=== PATIENT | female | born 1940 | race Caucasian/White ===

== ENCOUNTER 2020-12-05 10:09 | Outpatient (REF) | payer MEDICARE, SELFPAY ==
[2020-12-05 13:22] LABS: MANUAL DIFF FLAG NO
[2020-12-05 13:27] LABS: Basophils Absolute Auto 0.1 X10*3/uL (0.0-0.2); Basophils Percent Auto 0.7 % (0-2); Eosinophils Absolute Auto 0.1 X10*3/uL (0.0-0.4); Eosinophils Percent Auto 1.9 % (0-4); Hematocrit 39.6 % (37-47); Imm Gran Abs Auto 0.01 X10*3/uL (0.00-0.03); Imm Gran Pct Auto 0.1 % (0.0-0.4); Lymphocytes Absolute Auto 2.8 X10*3/uL (1.2-4.9); Mean Corpuscular HGB Conc 32.8 g/dl (31.0-35.0); Mean Corpuscular Hemoglobin 30.6 pg (27.0-33.0); Mean Corpuscular Volume 93.2 fL (80-98); Mean Platelet Volume 10.4 fL (9.4-12.3); Monocytes Absolute Auto 0.5 X10*3/uL (0.1-1.2); Monocytes Percent Auto 6.9 % (2-11); Neutrophils Absolute Auto 3.8 X10*3/uL (2.0-8.3); Neutrophils Percent Auto 52.4 % (45-73); Platelet Count 307 X10*3/uL (160-400); Red Blood Count 4.25 X10*6/uL (4.20-5.50); Red Cell Distribution Width 13.1 % (11.0-16.0); White Blood Count 7.3 X10*3/uL (4.8-10.8)
[2020-12-05 14:03] LABS: Alanine Aminotransferase 19 U/L (0-31); Albumin Level 4.3 g/dL (3.5-5.0); Alkaline Phosphatase 48 U/L (39-117); Anion Gap 15 (12-20); Aspartate Amino Transferase 23 U/L (5-31); Bilirubin Total 0.7 mg/dL (0.0-1.0); Blood Urea Nitrogen 16 mg/dL (9-16); Calcium 9.5 mg/dL (8.4-10.2); Carbon Dioxide 27 mmol/L (22-29); Chloride 103 mmol/L (96-108); Cholesterol 203 mg/dL; Estimated Glomerular Filt Rate 58; Glucose Fasting 80 mg/dL (60-99); HDL Cholesterol 46 mg/dL; Iron 101 mcg/dL (30-160); LDL Cholesterol Calculated 135 mg/dl; Percent Iron Saturation 31 % (15-50); Potassium 4.6 mmol/L (3.3-5.1); Sodium 140 mmol/L (135-145); Total Iron Binding Capacity 331 mcg/dL (228-428); Total Protein 7.1 g/dL (6.5-8.0); Triglycerides 114 mg/dL; Unsaturated Iron Binding 230 ug/dL
[2020-12-05 14:19] LABS: Ferritin 133 ng/mL (10-250); Thyroid Stimulating Hormone 3.02 uIU/mL (0.32-4.0); Vitamin D 25-OH Total 90.3 ng/mL (>30)
[2020-12-05 14:40] LABS: Vitamin B12 1646 pg/mL (200-900)
== END 2020-12-05 10:10 | disposition home or self-care (01) ==
LOC: HO.MANLDS 10:09
PROVIDERS: PCP Internal Medicine; Visit Provider Internal Medicine
DX: E78.00 Pure hypercholesterolemia, unspecified (principal); R53.83 Other fatigue
CPT/HCPCS: 36415; 80053; 80061; 82306; 82607; 82728; 83540; 84443; 85025

== ENCOUNTER 2021-06-06 08:06 | Outpatient (REF) | payer MEDICARE, BC, SELFPAY ==
--- NOTE | ~2021-06-06 | MM_ITS ---
EXAMINATION: BONE DENSITOMETRY CLINICAL INDICATION: Osteopenia. COMPARISON: Previous BD dated 04/07/2019 and baseline BD dated 05/08/2008. TECHNIQUE: Using a [employer] DXA System (software version: 13.1) manufactured by [employer], dual-energy x-ray absorptiometry was performed of the lumbar spine and left hip. The images are of good technical quality. Summary results are attached. FINDINGS: AP SPINE L1-L2 (excluding L3 and L4): The data of L1-L4 has been changed to exclude the L3 and L4 vertebral bodies, because degenerative changes at these levels may cause overestimation of lumbar spine density. Current: BMD 1.030 g/cm2, Z-score 0.1, T-score -1.1, osteopenia, 5.1% increase from previous, 4.9% increase from baseline (<5% change is not significant). Prior: BMD 0.980 g/cm2. Baseline: BMD 0.982 g/cm2. LEFT FEMUR, NECK: Current: BMD 0.866 g/cm2, Z-score 0.4, T-score -1.2, osteopenia. Prior: BMD 0.820 g/cm2. Baseline: BMD 0.846 g/cm2. LEFT FEMUR, TOTAL: Current: BMD 0.892 g/cm2, Z-score 0.6, T-score -0.9, normal, 1.4% increase from previous, 1.2% increase from baseline (<5% change is not significant). Prior: BMD 0.880 g/cm2. Baseline: BMD 0.881 g/cm2. IDENTIFIED RISK FACTORS: Menopause, bilateral oophorectomy, family history (parent hip fracture). HISTORY OF FRACTURE: None listed. MEDICATIONS: Multivitamin. MM/XR DEXA axial skeleton IMPRESSION: 1. DIAGNOSIS: Osteopenia based on the lowest T-score value of -1.2 in the femoral neck applying World Health Organization criteria. 2. 10-YEAR FRACTURE RISK PREDICTION, FRAX: Major osteoporotic fracture (clinical spine, forearm, hip or shoulder) 18.7%. Hip fracture 9.3%. 3. Treatment Recommendations: NOF guidelines recommend consideration for treatment in postmenopausal women and men age 50 and older presenting with the following: -A hip or vertebral (clinical or morphometric) fracture. -T-score less than or equal to -2.5 at the femoral neck or spine after appropriate evaluation to exclude secondary causes. -Low bone mass at the hip or spine and a 10-year fracture probability by FRAX of greater than or equal to 3% for hip fracture or greater than or equal to 20% for major osteoporotic fracture based on the [place] adapted WHO algorithm. 4. Other Recommendations: All treatment decisions require clinical judgment and consideration of individual patient factors, including patient preferences, comorbidities, previous drug use, risk factors not captured in the FRAX model (e.g. frailty, falls, vitamin D deficiency, increased bone turnover, interval significant decline in bone density) and possible under or overestimation of fracture risk by FRAX. Additional medical evaluation for secondary cause of low bone mineral density may be appropriate. FUTURE SCAN RECOMMENDATION: People with diagnosed cases of osteoporosis or at high risk for fracture should have regular bone mineral density tests. For patients eligible for Medicare, routine testing is allowed once every 2 years. The testing frequency can be increased to one year for patients who have rapidly progressing disease, those who are receiving or discontinuing medical therapy to restore bone mass, or have additional risk factors.
== END 2021-06-06 08:07 | disposition home or self-care (01) ==
LOC: HO.MAMMO 08:06
PROVIDERS: Visit Provider Internal Medicine
DX: Z13.820 Encounter for screening for osteoporosis (principal); M85.80 Other specified disorders of bone density and structure, unspecified site; Z78.0 Asymptomatic menopausal state
CPT/HCPCS: 77080

== ENCOUNTER 2021-12-24 07:31 | Outpatient (REF) | payer MEDICARE, BC, SELFPAY ==
[2021-12-24 11:13] LABS: Alanine Aminotransferase 17 U/L (0-31); Alkaline Phosphatase 48 U/L (39-117); Anion Gap 11 (12-20); Aspartate Amino Transferase 22 U/L (5-31); Bilirubin Total 0.4 mg/dL (0.0-1.0); Blood Urea Nitrogen 21 mg/dL (9-16); Calcium 9.5 mg/dL (8.4-10.2); Carbon Dioxide 27 mmol/L (22-29); Chloride 108 mmol/L (96-108); Estimated Glomerular Filt Rate 60; Glucose Random 126 mg/dL (60-115); Potassium 4.8 mmol/L (3.3-5.1); Sodium 141 mmol/L (135-145); Total Protein 6.8 g/dL (6.5-8.0)
== END 2021-12-24 07:32 | disposition home or self-care (01) ==
LOC: HO.MANLDS 07:31
PROVIDERS: PCP Internal Medicine; Visit Provider Internal Medicine
DX: E78.5 Hyperlipidemia, unspecified (principal)
CPT/HCPCS: 36415; 80053

== ENCOUNTER 2022-05-20 09:52 | Outpatient (REF) | payer MEDICARE, BC, SELFPAY ==
[2022-05-20 12:16] LABS: Alanine Aminotransferase 12 U/L (0-31); Albumin Level 4.2 g/dL (3.5-5.0); Alkaline Phosphatase 52 U/L (39-117); Anion Gap 15 (12-20); Aspartate Amino Transferase 17 U/L (5-31); Bilirubin Total 0.5 mg/dL (0.0-1.0); Blood Urea Nitrogen 20 mg/dL (9-16); Calcium 9.7 mg/dL (8.4-10.2); Carbon Dioxide 28 mmol/L (22-29); Chloride 103 mmol/L (96-108); Estimated Glomerular Filt Rate 57; Glucose Random 78 mg/dL (60-115); Potassium 5.3 mmol/L (3.3-5.1); Sodium 141 mmol/L (135-145); Total Protein 7.1 g/dL (6.5-8.0)
== END 2022-05-20 09:53 | disposition home or self-care (01) ==
LOC: HO.MANLDS 09:52
PROVIDERS: Visit Provider Internal Medicine
DX: E78.5 Hyperlipidemia, unspecified (principal)
CPT/HCPCS: 36415; 80053

== ENCOUNTER 2022-12-02 07:43 | Outpatient (REF) | payer MEDICARE, BC, SELFPAY ==
[2022-12-02 12:35] LABS: Alanine Aminotransferase 16 U/L (0-31); Albumin Level 4.1 g/dL (3.5-5.0); Alkaline Phosphatase 52 U/L (39-117); Anion Gap 13 (12-20); Aspartate Amino Transferase 20 U/L (5-31); Bilirubin Total 0.5 mg/dL (0.0-1.0); Blood Urea Nitrogen 18 mg/dL (9-16); Calcium 9.4 mg/dL (8.4-10.2); Carbon Dioxide 30 mmol/L (22-29); Chloride 103 mmol/L (96-108); Cholesterol 196 mg/dL; Estimated Glomerular Filt Rate 56; Glucose Random 95 mg/dL (60-115); HDL Cholesterol 47 mg/dL; LDL Cholesterol Calculated 127 mg/dl; Potassium 4.9 mmol/L (3.3-5.1); Sodium 141 mmol/L (135-145); Total Protein 6.9 g/dL (6.5-8.0); Triglycerides 111 mg/dL
== END 2022-12-02 07:44 | disposition home or self-care (01) ==
LOC: HO.MANLDS 07:43
PROVIDERS: Visit Provider Internal Medicine
DX: E78.5 Hyperlipidemia, unspecified (principal); E78.00 Pure hypercholesterolemia, unspecified
CPT/HCPCS: 36415; 80053; 80061

== ENCOUNTER 2023-11-30 07:51 | Outpatient (REF) | payer MEDICARE, BC, SELFPAY ==
[2023-11-30 13:37] LABS: Basophils Absolute Auto 0.1 X10*3/uL (0.0-0.2); Basophils Percent Auto 0.7 % (0-2); Eosinophils Absolute Auto 0.2 X10*3/uL (0.0-0.4); Eosinophils Percent Auto 2.2 % (0-4); Hematocrit 38.7 % (37.0-47.0); Hemoglobin 12.7 g/dl (12.0-16.0); Imm Gran Abs Auto 0.02 X10*3/uL (0.00-0.03); Imm Gran Pct Auto 0.3 % (0.0-0.4); Lymphocytes Absolute Auto 2.3 X10*3/uL (1.2-4.9); Mean Corpuscular HGB Conc 32.8 g/dl (31.0-35.0); Mean Corpuscular Hemoglobin 29.6 pg (27.0-33.0); Mean Corpuscular Volume 90.2 fL (80.0-98.0); Mean Platelet Volume 11.2 fL (9.4-12.3); Monocytes Absolute Auto 0.4 X10*3/uL (0.1-1.2); Neutrophils Absolute Auto 4.2 x10*3/uL (2.0-8.3); Neutrophils Percent Auto 58.8 % (45-73); Red Blood Count 4.29 X10*6/uL (4.20-5.50); Red Cell Distribution Width 13.6 % (11.0-16.0)
[2023-11-30 13:38] LABS: Platelet Count 227 X10*3/uL (160-400); White Blood Count 7.1 X10*3/uL (4.8-10.8)
[2023-11-30 13:59] LABS: Alanine Aminotransferase 18 U/L (0-31); Albumin Level 4.1 g/dL (3.5-5.0); Alkaline Phosphatase 52 U/L (39-117); Anion Gap 14 (12-20); Aspartate Amino Transferase 26 U/L (5-31); Bilirubin Total 0.4 mg/dL (0.0-1.0); Blood Urea Nitrogen 14 mg/dL (9-16); Carbon Dioxide 26 mmol/L (22-29); Chloride 106 mmol/L (96-108); Cholesterol 187 mg/dL (<200); Estimated Glomerular Filt Rate 52; Glucose Random 94 mg/dL (60-115); HDL Cholesterol 45 mg/dL (>40); LDL Cholesterol Calculated 123 mg/dL (<100); Potassium 5.3 mmol/L (3.3-5.1); Sodium 141 mmol/L (135-145); Total Protein 7.6 g/dL (6.5-8.0); Triglycerides 99 mg/dL (<150)
[2023-11-30 14:49] LABS: Reflex LDLD? No
== END 2023-11-30 07:52 | disposition home or self-care (01) ==
LOC: HO.MANLDS 07:51
PROVIDERS: Visit Provider Internal Medicine
DX: E78.00 Pure hypercholesterolemia, unspecified (principal)
CPT/HCPCS: 36415; 80053; 80061; 85025

== ENCOUNTER 2024-01-14 08:35 | Outpatient (REF) | payer MEDICARE, BC, SELFPAY ==
--- NOTE | ~2024-01-14 | MR_ITS ---
EXAMINATION: MR KNEE WITHOUT CONTRAST, RIGHT CLINICAL INFORMATION: Right knee pain. Multiple falls. Evaluate for a meniscal tear. COMPARISON: None available. TECHNIQUE: MRI of the knee without contrast was performed using routine sequences on a high-field scanner. FINDINGS: MENISCI: Medial Meniscus: Peripheral tibial articular surface fraying of the posterior horn (sagittal image /25). Lateral Meniscus: Mild focal femoral articular surface fraying of the meniscal body with minimal inner margin fraying of the posterior root. LIGAMENTS: Cruciate: Intact. Collateral: Intact. EXTENSOR MECHANISM: Intact quadriceps and patellar tendons. Normal patellofemoral alignment. ARTICULAR CARTILAGE/BONE: Patellofemoral Compartment: Patellar median ridge and medial patellar facet articular cartilage thinning with areas of full-thickness loss and subchondral cystic change. Medial Compartment: Mild articular cartilage signal heterogeneity with tiny marginal osteophytes. Medial tibial plateau full-thickness fissuring with underlying subchondral cystic change. Lateral Compartment: Mild articular cartilage signal heterogeneity with small marginal osteophytes. Subchondral cystic change at the lateral aspect of the weightbearing lateral femoral condyle. Focal marrow edema at the anteromedial aspect of the tibial plateau consistent with an osseous contusion. No associated fracture line. Overlying soft tissue edema/contusion. No hematoma. JOINT FLUID AND BURSAE: Small joint effusion and trace Washington's cyst. MR/MR knee RT wo con IMPRESSION: 1. Peripheral tibial articular surface fraying of the medial meniscus posterior horn. 2. Mild focal femoral articular surface fraying of the lateral meniscal body with minimal inner margin fraying of the posterior root. 3. Osseous contusion at the anteromedial aspect of the tibial plateau with overlying soft tissue contusion. No associated fracture line. 4. Mild tricompartmental osteoarthritis. Small joint effusion and trace Washington's cyst.
== END 2024-01-14 08:36 | disposition home or self-care (01) ==
LOC: HO.MRI 08:35
PROVIDERS: PCP Internal Medicine; Visit Provider Internal Medicine
DX: S83.206D Unspecified tear of unspecified meniscus, current injury, right knee, subsequent encounter (principal)
CPT/HCPCS: 73721

== ENCOUNTER → 2024-04-01 13:26 | Outpatient (AMB) | payer MEDICARE, BC, SELFPAY ==
--- NOTE | 2024-04-01 13:28 | MHC.OFFWIV ---
Intake Vital Signs 04/01/24 13:32 04/01/24 14:07 Height 5 ft 5.5 in Weight 184 lb 6 oz BMI 30.2 BP 122/72 Blood Pressure Location Rt brachial Position Sitting Respiration 14 Pulse 102 H 88 Pulse Source Pulse Oximeter Auscultation Pulse Oximetry (%) 97 Oxygen Delivery Method Room Air Intake Visit Reasons: tick bite Intake Note: patient has a tick bite on her back. Patient Tobacco Use Status: Never used Tobacco Allergies erythromycin base [From ERYTHROCIN] Allergy (Unknown, Verified 04/01/24 13:46) HIVES Medication List - Last Reconciled 04/01/24 by LORNE Singleton- No Known Home Meds Do you need a note to return to daycare/school/sports/work: No HPI HPI Comments History of Present Illness Details Pleasant 83-year-old female here today with chief complaints of a tick bite on her back. Reports that her noticed the tick yesterday and was able to extract it. She is unsure when the tick bite occurred. She is worried as she has a history of ehrlichiosis about 6 years ago. At the present time she denies any constitutional symptoms and feels quite well. Exam Awake alert oriented, no acute distress Speaking in full sentences 1-2 mm round area that is depressed in the center with scabbing noted at the thoracic hump, without erythema, drainage, warmth or tenderness Plan: Doxycycline 200mg x 1 Given hx of ehrlichiosis, check CBC and LFTs in 1 week. Educated on reasons to follow up. This note is constructed using voice recognition software. While every effort has been made to ensure accuracy in mission worker, still errors may have been included Sometimes, these errors may affect the content or meaning of the given sentence . [facility] Social History Patient Tobacco Use Status: Never used Tobacco Physical Exam Vital Signs: Last Vital Signs Pulse 102 H 04/01/24 13:32 Resp 14 04/01/24 13:32 BP 122/72 04/01/24 13:32 Pulse Ox 97 04/01/24 13:32 Oxygen Delivery Method Room Air 04/01/24 13:32 BMI result Body Mass Index 30.2 Assessment & Plan Assessment & Plan (1) History of ehrlichiosis: Code(s): Z86.19 - Personal history of other infectious and parasitic diseases Plan: . (2) Tick bite: Code(s): W57.XXXA - Bitten or stung by nonvenomous insect and other nonvenomous arthropods, initial encounter Qualifiers: Encounter type: initial encounter Site of tick bite: other part of neck Qualified Code(s): S10.86XA - Insect bite of other specified part of neck, initial encounter; W57.XXXA - Bitten or stung by nonvenomous insect and other nonvenomous arthropods, initial encounter Plan: . Orders: Orders Complete Blood Count Man Dif 1 Week W57.XXXA - Bitten or stung by nonvenomous insect and other nonvenomous arthropods, initial encounter, Z86.19 - Personal history of other infectious and parasitic diseases Liver Panel 1 Week W57.XXXA - Bitten or stung by nonvenomous insect and other nonvenomous arthropods, initial encounter, Z86.19 - Personal history of other infectious and parasitic diseases Medications: New doxycycline hyclate 200 mg (2 x 100 mg) PO DAILY 2 caps 0RF 1 day Coding Level of Care Code Est Pt Level 3 (37925) Diagnoses History of ehrlichiosis Z86.19 Tick bite of other part of neck, initial encounter S10.86XA; W57.XXXA Encounter type: initial encounter Site of tick bite: other part of neck
--- OUTSIDE RECORDS SUMMARY | 2024-04-01 13:28 | XMS_ITS | Continuity of Care Document ---
Author Organization [facility] [employer] [facility] Address [address] [place] [address]- Care Team Providers Care Cook Fruit Name Role Phone Lluvia MEDINA Dean Thomas Primary Care Physician [phone] [facility] [id number] Date(s): 12/25/20 - 01/24/21 [facility] [place] [facility] [employer] [facility] [address] [place], [place] [address] Attending Physician: Simon Martinez Admitting Physician: AdmSimon weller Referring Physician: Admtr ArWilma Allergies, Adverse Reactions, Alerts Substance Reaction Severity Status erythromycin Active Medications aspirin 81 mg oral tablet 1 tablet = 81 mg, By Mouth, Daily, # 30 tablet, 0 Refills, Maintenance, Tablet Start Date: 12/18/11 Status: Ordered Calcium Carbonate By Mouth, 0 Refills, Maintenance Start Date: 12/18/11 Status: Ordered Fluoxetine By Mouth, 20 mg daily, 0 Refills, Maintenance Start Date: 12/18/11 Status: Ordered Ocuvite 1 tablet, By Mouth, Daily, 0 Refills, Maintenance Start Date: 05/17/13 Status: Ordered Simvastatin By Mouth, Daily at bedtime, 0 Refills, Maintenance Start Date: 12/09/10 Status: Ordered Vitamin B Complex oral tablet, extended release 1 tablet, By Mouth, Daily, 0 Refills, Maintenance Start Date: 12/18/11 Status: Ordered Social History Social History Type Response Smoking Status Former smoker; Tob[employer] user in household: No entered on: 12/02/16 Sex
[2024-04-01 13:32] VITALS: BP 122/72; PULSE 102; RESP 14; O2SAT 97; BMI 30.2
[2024-04-01 14:07] VITALS: PULSE 88
== END ==
PROVIDERS: PCP Internal Medicine; Visit Provider Nurse Practitioner Family
DX: Z86.19 Personal history of other infectious and parasitic diseases (principal); S10.86XA Insect bite of other specified part of neck, initial encounter; W57.XXXA Bitten or stung by nonvenomous insect and other nonvenomous arthropods, initial encounter
CPT/HCPCS: 99213

== ENCOUNTER 2024-04-12 10:32 | Outpatient (REF) | payer MEDICARE, BC, SELFPAY ==
[2024-04-12 11:26] LABS: Baso%MD 0.7 %; Hematocrit 40.8 % (37.0-47.0); Hemoglobin 13.3 g/dl (12.0-16.0); IG%MD 0.4 %; Lymph%MD 34.3 %; Mean Corpuscular HGB Conc 32.6 g/dl (31.0-35.0); Mean Corpuscular Hemoglobin 30.4 pg (27.0-33.0); Mean Corpuscular Volume 93.2 fL (80.0-98.0); Mean Platelet Volume 9.7 fL (9.4-12.3); Mono%MD 7.2 %; Neut%MD 55.4 %; Platelet Count 363 X10*3/uL (160-400); Red Blood Count 4.38 X10*6/uL (4.20-5.50); White Blood Count 8.3 X10*3/uL (4.8-10.8)
[2024-04-12 12:13] LABS: Alanine Aminotransferase 20 U/L (0-31); Albumin Level 4.4 g/dL (3.5-5.0); Alkaline Phosphatase 61 U/L (39-117); Aspartate Amino Transferase 25 U/L (5-31); Bilirubin Direct 0.1 mg/dL (0.0-0.5); Bilirubin Total 0.3 mg/dL (0.0-1.0); Total Protein 7.6 g/dL (6.5-8.0)
[2024-04-12 13:07] LABS: Band Neutrophils Percent 1 % (3-5); Eosinophils Absolute Manual 0.1 X10*3/uL (0.0-0.4); Eosinophils Percent Manual 1 % (0-4); Lymphocytes Absolute Manual 2.7 X10*3/uL (1.2-4.9); Lymphocytes Percent Manual 33 % (20-40); Monocytes Absolute Manual 0.5 X10*3/uL (0.1-1.2); Monocytes Percent Manual 6 % (2-11); Neutrophils Percent Manual 59 % (45-73)
[2024-04-12 13:11] LABS: Platelet Estimate NORMAL (NORMAL); Platelet Morphology Comment NORMAL; RBC Morphology NORMAL
== END 2024-04-12 10:33 | disposition home or self-care (01) ==
LOC: HO.LAB 10:32
PROVIDERS: PCP Internal Medicine; Visit Provider Nurse Practitioner Family
DX: T14.8XXA Other injury of unspecified body region, initial encounter (principal); Z86.19 Personal history of other infectious and parasitic diseases; W57.XXXA Bitten or stung by nonvenomous insect and other nonvenomous arthropods, initial encounter; Y93.9 Activity, unspecified; Y92.9 Unspecified place or not applicable; Y99.9 Unspecified external cause status
CPT/HCPCS: 36415; 80076; 85007; 85027

== ENCOUNTER 2024-12-14 07:54 | Outpatient (REF) | payer MEDICARE, BC, SELFPAY ==
--- OUTSIDE RECORDS SUMMARY | 2024-12-14 07:57 | XMS_ITS | Data Portability ---
Author Organization [facility] Service Address [address] [place] [address] Assessment Encounter Date Assessment Date Assessment LastModified by Organization Details LastModified Time 12/10/2022 12/10/2022 [id number] [place] [id number] (BUCKET HOOKER) MDM MODERATE MUST MEET 2 OUT OF 3 ELEMENTS: PROBLEMS, DATA OR RISK ELEMENT 1: PROBLEMS ADDRESSED 1 OR MORE CHRONIC ILLNESS WITH EXACERBATION OR 2 OR MORE STABLE CHRONIC ILLNESSES OR 1 UNDIAGNOSED NEW PROBLEM OR 1 ACUTE ILLNESS W/SYMPTOMS OR 1 ACUTE COMPLICATED INJURY ELEMENT 2: DATA MUST MEET 1 OF 3 CATEGORIES CATEGORY 1: REVIEW OF PRIOR EXTERNAL NOTES, REVIEW OF RESULTS, ORDERING OF EACH TEST, ASSESSMENT REQUIRING INDEPENDENT HISTORIAN OR CATEGORY 2: INDEPENDENT INTERPRETATION OF TESTS BY ANOTHER PHYSICIAN OR SPECIALIST OR CATEGORY 3: DISCUSSION OF MGT OR TEST INTERPRETATION W/EXTERNAL PHYSICIAN OR SPECIALIST ELEMENT 3: RISK RISK OF COMPLICATIONS AND/OR MORBIDITY OR MORTALITY OF PATIENT MANAGEMENT PROVIDER MUST THOROUGHLY DOCUMENT EACH ELEMENT THAT IS COVERED Not available 12/10/2022 10:25:31 05/01/2023 05/01/2023 [id number] [place] [id number] (BUCKET HOOKER) : MDM LOW MUST MEET 2 OF 3 ELEMENTS: PROBLEMS, DATA OR RISK ELEMENT 1: PROBLEMS ADDRESSED (LOW): 2 OR MORE SELF-LIMITED OR MINOR PROBLEMS OR 1 STABLE CHRONIC ILLNESS OR 1 ACUTE UNCOMPLICATED ILLNESS OR INJURY ELEMENT 2: DATA TO BE REVISED AND ANALYZED (LOW) MUST MEET 1 OF 2 CATEGORIES: CATEGORY 1. REVIEW OF PRIOR EXTERNAL NOTES/RESULTS, ORDERING OF TEST(S) CATEGORY 2. ASSESSMENT REQUIRING INDEPENDENT HISTORIAN(S) INCLUDE WHO THE HISTORIAN IS AND RELATION TO PT AND WHY PT IS UNABLE TO GIVE COMPLETE HISTORY ELEMENT 3: RISK (LOW) RISK OF COMPLICATIONS AND/OR MORBIDITY OR MORTALITY OF PATIENT MANAGEMENT PROVIDER MUST THOROUGHLY DOCUMENT ALL OF THE ELEMENTS COVERED Not available 05/01/2023 10:21:09 05/29/2023 05/29/2023 [id number] [place] [id number] (BUCKET HOOKER) MDM MODERATE MUST MEET 2 OUT OF 3 ELEMENTS: PROBLEMS, DATA OR RISK ELEMENT 1: PROBLEMS ADDRESSED 1 OR MORE CHRONIC ILLNESS WITH EXACERBATION OR 2 OR MORE STABLE CHRONIC ILLNESSES OR 1 UNDIAGNOSED NEW PROBLEM OR 1 ACUTE ILLNESS W/SYMPTOMS OR 1 ACUTE COMPLICATED INJURY ELEMENT 2: DATA MUST MEET 1 OF 3 CATEGORIES CATEGORY 1: REVIEW OF PRIOR EXTERNAL NOTES, REVIEW OF RESULTS, ORDERING OF EACH TEST, ASSESSMENT REQUIRING INDEPENDENT HISTORIAN OR CATEGORY 2: INDEPENDENT INTERPRETATION OF TESTS BY ANOTHER PHYSICIAN OR SPECIALIST OR CATEGORY 3: DISCUSSION OF MGT OR TEST INTERPRETATION W/EXTERNAL PHYSICIAN OR SPECIALIST ELEMENT 3: RISK RISK OF COMPLICATIONS AND/OR MORBIDITY OR MORTALITY OF PATIENT MANAGEMENT PROVIDER MUST THOROUGHLY DOCUMENT EACH ELEMENT THAT IS COVERED Not available 05/29/2023 09:50:29 12/04/2023 12/04/2023 [id number] [place] [id number] (BUCKET HOOKER) MDM MODERATE MUST MEET 2 OUT OF 3 ELEMENTS: PROBLEMS, DATA OR RISK ELEMENT 1: PROBLEMS ADDRESSED 1 OR MORE CHRONIC ILLNESS WITH EXACERBATION OR 2 OR MORE STABLE CHRONIC ILLNESSES OR 1 UNDIAGNOSED NEW PROBLEM OR 1 ACUTE ILLNESS W/SYMPTOMS OR 1 ACUTE COMPLICATED INJURY ELEMENT 2: DATA MUST MEET 1 OF 3 CATEGORIES CATEGORY 1: REVIEW OF PRIOR EXTERNAL NOTES, REVIEW OF RESULTS, ORDERING OF EACH TEST, ASSESSMENT REQUIRING INDEPENDENT HISTORIAN OR CATEGORY 2: INDEPENDENT INTERPRETATION OF TESTS BY ANOTHER PHYSICIAN OR SPECIALIST OR CATEGORY 3: DISCUSSION OF MGT OR TEST INTERPRETATION W/EXTERNAL PHYSICIAN OR SPECIALIST ELEMENT 3: RISK RISK OF COMPLICATIONS AND/OR MORBIDITY OR MORTALITY OF PATIENT MANAGEMENT PROVIDER MUST THOROUGHLY DOCUMENT EACH ELEMENT THAT IS COVERED Not available 12/04/2023 16:03:40 05/30/2024 05/30/2024 Patient presente d to office today for their Medicare Annual Wellness Visit. Education was provided on healthy nutrition, including a diet rich in fruits and vegetables, minimizing simple carbohydrates, salt, and saturated fats. Encouraged regular cardiovascular exercise such as walking at least 30 minutes daily, 5 times per week. Emphasized preventive health measures and educated pt on fall prevention and community-based lifestyle interventions to help reduce health risks and promote healthy living. Not available 05/04/2024 15:46:07 Plan of Treatment Reminders Order Date Submit Date Provider Last Modified By Organization Details Last Modified Time Details Appointments FOLLOW UP 2024 09:00A M DR CANNON Not available Not available Not available Lab lipid panel, blood 2023 024 [facility], [address], [place], [address], 12/04/2023 16:04:56 CBC w/ auto diff 2023 024 [facility], [address], [place], [address], 12/04/2023 16:04:56 lipid panel, blood 2022 023 [facility] (Centralized Electronic Ordering - All Locations), Patient Can Go To The Location Of Their Choice, [id number] 05/05/2023 23:43:21 CMP, serum or plasma 2022 023 [facility] (Centralized Electronic Ordering - All Locations), Patient Can Go To The Location Of Their Choice, [id number] 05/05/2023 23:43:21 CBC 2022 023 [facility] (Centralized Electronic Ordering - All Locations), Patient Can Go To The Location Of Their Choice, [id number] 05/05/2023 23:43:21 Referral None recorded. Procedures None recorded. Surgeries None recorded. Imaging MRI, knee, w/o contrast 2023 024 [facility], [address] [place], [address], 12/14/2023 09:20:45 XR, knee, 3 view [address] [facility], [address] [place], [address], 05/04/2023 11:16:14 Medication Orders cephalexi n 500 mg capsule 2023 024 [id number], [address] [place], [address], 05/30/2024 10:59:03 Patient TargetsNo targets recorded. Patient Instructions Encounter Date Encounter Id Patient Instructions Last Modified By Organization Details Last Modified Time 12/04/2023 [id number] meniscus tear: care instructions Not available 12/04/2023 16:05:18 05/30/2024 [id number] advance care planning: care instructions [email or web address] Not available 05/30/2024 10:59:01 Discussed and explained advance directives such as standard forms to the {{patient caregiv er patient and caregiver}}. Face to face discussion lasted for a duration of ___ minutes. Not available 05/04/2024 15:46:07 Reason for Referral None Reported. Results Created Date Observation Date Name Description Value Unit Range Abnormal Flag Note LastModifiedBy Organization Detail LastModifiedTime 05/04/2005/04/2023 XR, knee, 3 view No observ ation record ed. [facility] [address] [place], [address], 05/04/2023 12:00:37 06/03/20 23 06/03/2023 MAMMO , 3D rende ring No observ ation record ed. [email or web address] [address], [place], [address], 06/03/2023 12:37:23 01/19/20 24 01/14/2024 MRI, knee, w/o contr ast No observ ation record ed. [facility] (Medical Records) [address] [place], [address], 01/20/2024 12:03:03 Result Notes None recorded. 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 lyme ds Not Available [facility] 2 08:56:40 Pancytop enia 021973933 Completed 202112/10/2022 Dean Cannon, DO [address] [place] [address], [address], [facility] 3 10:25:19 Cyst of kidney 216361800 Active 2021 Dean Cannon, DO [address] [place] [address], [address], [facility] 2 14:51:56 Pain of right knee joint 71070047789 4100 Active 2022 Dean Cannon, DO [address] [place] [address], [address], [facility] 3 10:21:26 Bilatera l osteoart hritis of knees 67821217909 9107 Active 2022 Dean Cannon DO [address] [place] [address], [address], [facility] 3 09:51:03 Eczema 04371571 Active 2022 Dean Cannon, DO [address] [place] [address], [address], [facility] 3 22:09:28 Tear of meniscus of knee 356165635 Active 2023 Dean Cannon DO [address] [place] [address], [address], [facility] 4 16:04:22 Cellulit is of lower leg 031485846 Active 2023 Dean Cannon, DO [address] [place] [address], [address], [facility] 4 10:58:34 Depressi ve disorder 96496090 Active 2017 Not Available [facility] 2 08:56:40 Hypercho lesterol emia 96594709 Active 2017 Not Available [facility] 2 08:56:40 History of malignan t neoplasm of breast 681776061 Active 2017 Not Available [facility] 2 08:56:40 Problem Notes None recorded. Procedures Surgical History Date Name Laterality Status Provider Name and Address Organization Details Recorded Time 03/02/20 19 Cerumen Removal completed November PENELOPE Rene [address] [place], [address], [facility] 03/02/2019 10:50:49 05/13/20 18 Most Recent Mammogram completed [facility] 01/18/2019 15:36:29 excision of left breast completed [facility] 01/18/2019 15:33:32 Imaging Results Imaging Date Name Status LastModified by Organiz ation Details LastModified Time 05/04/2023 XR, knee, 3 view completed [facility] [address] [place], [address], 05/04/2023 12:00:37 06/03/2023 MAMMO, 3D rendering completed [facility] [address], [place], [address], 06/03/2023 12:37:23 01/14/2024 MRI, knee, w/o contrast completed [facility] (Medical Records) [address] [place], [address], 01/20/2024 12:03:03 Procedure Notes None recorded. Medical Equipment None Reported. Allergies Allergen ID Allergen Name Allergen Category Reaction Reaction Severity Criticality Documentation Date Start Date Code Code System Note Provider Name and Address Organization Details Recorded Time 1494 erythromy william medicatio n Not available Not available Not available 12/30/2017 4053 [facility] 8 15:34:00 3163 doxycycli ne Not available Not available Not available Not available 02/09/2019 3640 RxNorm Dean Cannon, DO [address] [place], [address], [facility] 9 12:02:43 3543 Fosamax medicatio n other Not available Not available 05/20/2019 94212 5 RxNorm Dean MarthaYvonne Shahjeremy, DO [address] [place], [address], [facility] 9 09:29:29 Medications Name Sig Start Date Stop Date Status Note LastModified by Organization Details LastModified Time latanoprost 0.005 % eye drops INSTILL 1 DROP IN BOTH EYE(S) EVERY EVENING active Not Available Not Available No t Available prednisone 10 mg tablet PLEASE SEE ATTACHED FOR DETAILED DIRECTION S 05/30 completed Not Available Not Available Not Available doxycycline hyclate 100 mg capsule TAKE 2 CAPSULES BY MOUTH DAILY FOR 1 DAY 05/30 completed Not Available Not Available Not Available prednisone 20 mg tablet 03/26 completed Not Available Not Available Not Available sulfamethox azole 800 mg-trimetho prim 160 mg tablet TAKE 1 TABLET BY MOUTH EVERY 12 HOURS FOR 10 DAYS 01/03 completed Not Available Not Available Not Available prednisolon e acetate 1 % eye drops,suspe nsion INSTILL 1 DROP INTO RIGHT EYE 3 TIMES A DAY 05/30 completed Not Available Not Available Not Available tamsulosin 0.4 mg capsule 12/05 completed Not Available Not Available Not Available betamethaso ne valerate 0.1 % topical cream 1 APPL TOPICALLY 2 TIMES A DAY NEEDED FOR SKIN IRRITATIO N FOR 7 DAYS 05/30 completed Not Available Not Available Not Available cephalexin 500 mg capsule TAKE 1 CAPSULE BY MOUTH THREE TIMES A DAY FOR 7 DAYS active Not Available Not Available No t Available simvastatin 20 mg tablet 03/26 completed Not Available Not Available Not Available betamethaso ne dipropionat e 0.05 % topical cream APPLY TO AFFECTED AREA TWICE A DAY 05/30 completed Not Available Not Available Not Available diclofenac sodium 75 mg tablet,chito yed release Take 1 tablet every day by oral route as needed for 14 days. 02/09 completed Not Available Not Available Not Available mupirocin 2 % topical ointment APPLY 1-2 CM INTO EACH NOSTRIL AFTER WASHING YOUR FACE IN THE MORNING AND EVENING. 05/30 completed Not Available Not Available Not Available gabapentin 100 mg capsule TAKE 1 CAPSULE BY MOUTH THREE TIMES A DAY 12/10 completed Not Available Not Available Not Available Aspir-81 mg tablet,chito yed release Take 1 tablet every day by oral route. 01/19 completed Not Available Not Available Not Available levofloxaci n 500 mg tablet 02/09 completed Not Available Not Available Not Available fluoxetine 20 mg capsule Take 1 capsule every day by oral route. 03/25 completed Not Available Not Available Not Available naproxen 500 mg tablet TAKE 1 TABLET BY MOUTH TWICE A DAY FOR 14 DAYS 05/30 completed Not Available Not Available Not Available oxycodone 5 mg tablet Take 1 tablet every day by oral route at bedtime for 7 days. 02/09 completed Not Available Not Available Not Available ibandronate 150 mg tablet Take 1 tablet every month by oral route. 12/10 completed Not Available Not Available Not Available vitamin A active Not Available Not Nicole ilable Not Available calcium 03/02 completed Not Available Not Available Not Available B Complex active Not Available Not Nicole ilable Not Available Vitamin D3 active Not Available Not Av ailable Not Available multivitami n active Not Available Not Available Not Available B12 active Not Available Not Availa ble Not Available Probiotic active Not Available Not Nicole ilable Not Available Fluzone High-Dose 2019-20 (PF) 180 mcg/0.5 mL intramuscul ar syringe 05/20 completed Not Available Not Available Not Available Vitals Date Recorded Body height Body mass index (BMI) Body weight Heart rate Oxygen saturation Oxygen saturation in Arterial blood by Pulse oximetry Systolic blood pressure Diastolic blood pressure Provider Name and Address Organization Details Last Updated DateTime 3 159.39 cm 32.3 kg/m2 20849.2 2 g 91 /min 99 % 99 % 132 mm[Hg] 80 mm[Hg] Liya Barron [facility] 3 10:04:14 Date Recorded Body height Body mass index (BMI) Body weight Heart rate Oxygen saturation Oxygen saturation in Arterial blood by Pulse oximetry Systolic blood pressure Diastolic blood pressure Provider Name and Address Organization Details Last Updated DateTime 3 159.39 cm 32 kg/m2 52031.0 3 g 82 /min 96 % 96 % 130 mm[Hg] 76 mm[Hg] Liya Abbotthan [facility] 3 09:33:06 Date Recorded Body height Body mass index (BMI) Body weight Heart rate Oxygen saturation Oxygen saturation in Arterial blood by Pulse oximetry Systolic blood pressure Diastolic blood pressure Provider Name and Address Organization Details Last Updated DateTime 4 159.39 cm 32 kg/m2 89631.0 3 g 82 /min 98 % 98 % 120 mm[Hg] 60 mm[Hg] Liya Piotr [facility] 4 15:54:30 Date Recorded Body height Body mass index (BMI) Body weight Heart rate Oxygen saturation Oxygen saturation in Arterial blood by Pulse oximetry Systolic blood pressure Diastolic blood pressure Provider Name and Address Organization Details Last Updated DateTime 4 160.02 cm 31.5 kg/m2 30522.4 4 g 94 /min 98 % 98 % 120 mm[Hg] 82 mm[Hg] Ash Kelly [facility] 4 10:45:39 Social History Question Answer Notes LastModified by 2C2P Details LastModified Time Tobacco Smoking Status Former Smoker Not Available [facility] 06/05/2020 03:36:24 What Was The Date Of Your Most Recent Tobacco Screening? 05/30/2024 Information not available 05/30/2024 Sex: Unknown Functional Status Question Answer Note LastModified by 2C2P Details LastModified Time Do you use any illicit or recreational drugs? No Information not available 01/03/2022 Do you or have you ever used any other forms of tobacco or nicotine? No [email or web address] Information not available 12/04/2023 Mental Status None recorded. Family History Nothing Reported. Medical History No medical history recorded. Gynecological History Statement/Question Response Most Recent Mammogram 05/13/2018 Obstetrics History GPAL:G 0 P 0 0 0 0 Immunizations Vaccine Type Date Status Note Provider Nam e and Address Organization Details Recorded Time Influenza, split virus, quadrivalent, preservative 1 completed Dean Cannon, DO [address] [facility], [place], [address], [facility] 01/03/2022 14:41:40 COVID-19, mRNA, LNP-S, PF, 100 mcg/0.5mL dose or 50 mcg/0.25mL dose 1 completed Dean Cannon DO [address] [place] [address], [address], [facility] 01/03/2022 14:42:05 Tdap 2 completed Dean Cannon [address], [address], [facility] 04/10/2022 09:04:32 Influenza, split virus, quadrivalent, preservative 2 completed Dean Cannon DO [address] [place] [address], [address], [facility] 05/23/2022 14:19:35 MMR 6 [facility] 01/18/2019 15:34:12 Influenza, split virus, quadrivalent, preservative 8 completed Not Available [facility] 08/20/2019 02:46:31 COVID-19, mRNA, LNP-S, PF, 30 mcg/0.3 mL dose 1 completed Carly campbell [facility] 12/05/2020 09:32:45 COVID-19, mRNA, LNP-S, PF, 100 mcg/0.5mL dose or 50 mcg/0.25mL dose 1 [facility] 12/05/2020 09:32:57 Past Encounters Encounter ID Performer Location Encounter Start Date Encounter Closed Date Diagnosis/Indication Diagnosis SNOMED-CT Code Diagnosis ICD10 Code Diagnosis Note [id number] Dean Cannon [facility] Medicine [address] [place] [address],[place] [address] 05/21/2018 08:59:26 05/21/2018 10:48:25 Chronic depression 454869883 F34.1 Hypercholesterolemia 136 75171 E78.00 reviewed labs History of malignant neoplasm of breast 942935954 Z85.3 [id number] Dean Cannon [facility] Internal [address],[place] [address] 05/24/2018 13:55:57 05/24/2018 16:53:41 Administration of influenza vaccine 62704638 Z23 [id number] Dean Cannon [facility] Internal Medicine [address] [facility] [place] [address] 01/19/2019 10:02:07 01/19/2019 11:10:19 Pancytopenia 314335687 D61.818 leukopenia resolved while admitted thrombocyt openia trending upward anemia needs to be rechecked but remained stable while admitted Liver func tion tests outside reference range 063785719 R94.5 believed to be due to doxy. levels trended down after switching from doxy to levaquin markedly improved today, though still elevated will need to check again next week Fever 571179183 R50.9 resolved while admitted Diarrhea 99305181 R19.7 resolved while admitted had coffee this morning thought and caused diarrhea x 1 Abnormal g ait due to muscle weakness 786204746 M62.81 Hypokalemia 04654747 E87 .6 resolved while admitted Hyponatremia 91285730 E8 7.1 resolved while admitted Cyst of kidney 884737426 N28.1 Pain in lower limb 65112 006 M79.604 M79.605 ? 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 and is feeling betterenco uraged to drink water etc Severe dehydration 20611 6000 E86.0 is continuing to drink plenty of water Kidney stone 49220901 N2 0.0 reassuranc e [id number] Dean Cannno [facility] Internal Medicine [address] [facility] [place] [address] 03/02/2019 10:18:37 03/02/2019 11:50:49 Cough 24213660 R05 try flonase for post nasal drip get cxr if no improvemen t after 1-2 weeks or if cough worsens History of malignant neoplasm of breast 537445679 Z85.3 Hypercholesterolemia 136 49671 E78.00 Impacted c erumen of bilateral ears 1318334355 245760 H61.23 resolved Hearing loss 15604559 H9 0.0 resolved [id number] Dean Cannon [facility] Internal Medicine [address] [facility] [address],[place] [address] 03/25/2019 11:42:24 03/25/2019 12:11:16 Hypercholesterolemia 08525945 E78.00 recent blood work was excellent History of malignant neoplasm of breast 323017806 Z85.3 here and doing well no major issues and has good oncologist s in [place] at [facility] has had recent eval and no new issues Osteopenia 765492584 M85 .80 Numbness of toe 90073428 8 R20.0 will chk lab [id number] Dean Cannon [facility] Internal Medicine [address] [facility] [address],[place] [address] 05/20/2019 09:03:01 05/20/2019 09:55:43 Osteopenia 734652737 M85.80 has noted hx off fosamax intoleranc e due to loss of bone mass in jaw while on fosamax even lost a tooth will have her cont vitd3 and we will rechk in december when [place] Hypercholesterolemia 136 51395 E78.00 recent blood work was excellent [facility] will rechk and restart the simvastati n if her lab increases in the [place] Chronic depression 76057 0009 F34.1 [id number] Dean Cannon [facility] Internal Medicine [address] [facility] [address],[place] [address] 02/20/2020 14:20:58 02/20/2020 15:05:10 History of malignant neoplasm of breast 498076021 Z85.3 Doing well very well, just saw rad onc will see rad-onc in one year Hypercholesterolemia 136 98779 E78.00 recent blood work was excellent Continue to hold statin and recheck next year Cyst of kidney 089905434 N28.1 R sided, likely benign Was seen on CT last year[place] [id number] Dean Cannon [facility] Internal Medicine [address] [facility], [place] [address] 03/06/2020 09:39:03 03/06/2020 10:26:23 Adult health examination 934164509 Z00.00 patient was at the ER recently for a kidney stone on the right side has hematuria will set up with urology as she was not given referral by the hospital Active or passive immunization 416304172 Z23 no right now given they are not doing them did discuss with patient Kidney stone 52408975 N2 0.0 will send to urology to have her evaluated was given prednisone and flomax [id number] Dean Canonn [facility] Internal Medicine [address] [facility], [place] [address] 03/26/2020 09:57:41 03/26/2020 10:44:24 Solitary nodule of lung 872117335 R91.1 4 mm solitary nodule, in the right middle lobe will fu with onc Depressive disorder 0686 1007 F32.9 is feeling down but no SI patient states she does not want to start anything again [id number] Dean Cannon [facility] Internal Medicine [address] [place] [address], [place] [address] 12/05/2020 09:24:35 12/05/2020 12:25:55 Hypercholesterolemia 48767261 E78.00 recent blood work was excellent Continue to hold statin and recheck next year Fatigue 14278069 R53.83 [id number] Dean Cannon [facility] Internal Medicine [address] [facility],[place] [address] 01/11/2021 10:04:34 01/11/2021 13:01:13 Hypercholesterolemia 03197065 E78.00 recent blood work was excellent Continue to hold statin and recheck next year Female str ess incontinence 57891385 N39.3 she will call us and let us know whether the bladder is getting worse Depressive disorder 7624 7110 F32.9 [id number] Dean Cannon [facility] Internal Medicine [address],[place] [address] 05/21/2021 13:28:23 05/21/2021 14:23:39 Hypercholesterolemia 58817230 E78.00 recent blood work was excellent Continue to hold statin and recheck next year Depressive disorder 3548 9007 F32.9 has been doing ok overallden ies any worsening symptoms Pancytopenia 540408061 D 61.818 stable an not an issue Secondary peripheral neuropathy 200761 G63 we will try some gabapent Postmenopa usal osteopenia 611006473 M85.80 will order bone density [id number] Dean Cannon [facility] Internal Medicine [address],[place] [address] 01/03/2022 14:26:13 01/03/2022 15:27:52 Hypercholesterolemia 00934587 E78.00 recent blood work was excellent Continue to hold statin and recheck next year Osteopenia 954460213 M85 .80 has noted hx off fosamax intoleranc e due to loss of bone mass in jaw while on fosamax even lost a tooth will have her cont vitd3 and we will rechk in december [place] Depressive disorder 3548 9007 F32.9 has been doing ok overallden ies any worsening symptoms Advance care planning 71 4467091 Z71.89 cont Active or passive immunization 390602915 Z23 patient advised of due vaccines (tdap, pneu 13 & 23, shingles) Pancytopenia 521155229 D 61.818 stable an not an issue Secondary peripheral neuropathy 980619 G63 we will try some gabapent [id number] Dean Cannon [facility] Internal Medicine [address],[place] [address] 05/23/2022 14:06:22 05/23/2022 16:50:46 Hypercholesterolemia 70406426 E78.00 recent blood work was excellent Continue to hold statin and recheck next year Depressive disorder 3548 9007 F32.9 has been doing ok overallden ies any worsening symptoms Active or passive immunization 434139829 Z23 patient advised of due vaccines (flu, pneu 13 & 23, shingles) Secondary peripheral neuropathy 595115 G63 we will try some gabapent Cyst of kidney 649570353 N28.1 R sided, likely benign Was seen on CT 2018, not too visible on US but will order repeat when she returns in spring she had a renal US ordered but she cancelled [id number] Dean Cannon DO [facility] Internal Medicine [address], [place] [place] [facility] [address] 12/10/2022 09:54:19 12/10/2022 11:47:35 Hypercholesterolemia 44625027 E78.00 recent blood work was excellent Continue to hold statin and recheck next year History of malignant neoplasm of breast 046816297 Z85.3 Doing well very well, just saw rad onc will see rad-onc in one year 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 [id number] Dean Cannon DO [facility] Internal Medicine [address] [place] [address] 05/01/2023 08:57:33 05/01/2023 13:33:38 Hypercholesterolemia 75616465 E78.00 will order lab Continue to hold statin and recheck next year Pain of ri ght knee joint 7866584255 25105 M25.561 fell on knee going up stairs several weeks agonow very sore [id number] Dean Cannon DO [facility] Internal Medicine [address], [address] [facility] [place] [address] 05/29/2023 09:26:14 05/29/2023 12:03:54 Depressive disorder 93784887 F32.9 has been doing ok overallden ies any worsening symptoms Hypercholesterolemia 136 29521 E78.00 will order lab Continue to hold statin and recheck next year Bilateral osteoarthritis of knees 6965494864 99293 M17.0 relates she is actually doing ok Pain of ri ght knee joint 1974660821 03866 M25.561 fell on knee going up stairs several weeks agodoing good [id number] Dean Cannon [facility] Internal Medicine [address] [place] [address] 12/04/2023 15:47:05 12/04/2023 16:41:45 Bilateral osteoarthritis of knees 6397215522 21716 M17.0 relates she is actually doing ok Hypercholesterolemia 136 29117 E78.00 ldl is 120 doing ok reviewed lab in detailCont inue to hold statin and recheck next year Tear of me niscus of knee 387853915 S83.209A noted to have worsening pain and effusion [id number] DO Beatrice Smiley Internal Medicine [address],[place] [address] 05/30/2024 10:22:06 05/30/2024 14:58:18 Adult health examination 071737970 Z00.01 has a cellulitis Screening for osteoporosis 215436214 Z13.820 upon [place] Screening mammography 24 641411 Z12.31 upon [place] from [place] Depression screening 171 644676 Z13.31 here and doing well Cellulitis of lower leg 209881285 L03.119 Health Concerns Section Related Observation LastModified by Organization Detai ls LastModified Time None Recorded Concern Status LastModified by Organization Details LastModified Time None Recorded Advance Directives Directive None Recorded Payers Encounter Date Sequence Insurance Name Policy Number Policy Todd Covered Member ID Todd Member ID Guarantor Name 12/10/2022 2 [employer] [employer] 106 Precious Bonafilia [id number] Precious A Bonafilia 12/10/2022 1 [place] [employer] Precious A Bonafilia [id number] Precious A Bonafilia 05/01/2023 2 [employer] [employer] 106 Precious Bonafilia [id number] Precious A Bonafilia 05/01/2023 1 [place] Precious A Bonafilia [id number] Precious A Bonafilia 05/29/2023 2 [employer] [employer] 106 Precious Bonafilia [id number] Precious A Bonafilia 05/29/2023 1 [place] [employer] Precious A Bonafilia [id number] Precious A Bonafilia 12/04/2023 2 [employer] [employer] 106 Precious Bonafilia [id number] Precious A Bonafilia 12/04/2023 1 [place] [employer] [place] Precious A Bonafilia [id number] Precious A Bonafilia 05/30/2024 2 [employer] 106 Precious Bonafilia [id number] Precious Aguero 05/30/2024 1 [place] Precious Aguero [id number] Precious Aguero Notes Date Note Type Note Provider Name a nd Address Organization Details Recorded Time 3 text/html here for rechk and is doing well 'relates that [place] had an episode of cp type while in [place] after eating felt like something stuckwent to ERreviewed lab in detail Dean MarthaYvonne Cannon, [address] [place], [address], [facility] Internal Medicine 12/10/2022 10:29:27 3 text/html patient is evaluated via tele/video assessment per patient consent during current pandemicstate Dean ThomasYvonne DO [place] [place], [address], [facility] Internal Medicine 05/01/2023 10:28:10 3 text/html here for her rechk and is doing okstates that she feels welldiscussed in detail the results of her lab doing ok overallreviewed her xray showed mild djd Dean Cannon DO [address] [place], [address], [facility] Internal Medicine 05/29/2023 09:52:45 4 text/html here for rechk and is ok but is having a hard time with her knee states is very sore and is worseningdoing ok otherwise Dean Cannon, [address] [place], [address], [facility] Internal Medicine 12/04/2023 16:14:33 4 text/html Medicare Annual Wellness VisitReported bypatient.Diet and Nutrition:healthy diet Fracture Risk:no history of fractures; no recent explained fracture; no sudden unexplained fractures; no previous musculoskeletal injuries Physical Activity:exercises on a regular basis; recent increase in physical activity; good physical condition Depression Risk:never feels sad, empty, or tearful; no loss of interest in activities; no significant changes in weight; no sleep disturbances or insomnia; no agitation; no loss of energy; no feelings of worthlessness or guilt; no thoughts of suicide; no history of depression; no history of mood disorders Orientation:no disorientation to time; no disorientation to date; no disorientation to place Concentration and Memory:no decreased concentrating ability; no memory lapses or loss; does not forget words Speech/Motor difficulties:no speech difficulties; no difficulty expressing formulated concepts; no difficulty with fine manipulative tasks; no difficulty writing/copying; no slowed reaction time; does not knock things over when trying to pick them up Hearing:no loss of hearing Vision:no vision problems Activities of Daily Living:able to bathe with limited or no assistance; able to contol urination and bowels; able to dress with limited or no assistance; able to feed self with limited or no assistance; able to get out of chair or bed with limited or no assistance; able to groom with limited or no assistance; able to toilet with limited or no assistance Instrumental Activities of Daily Living:able to do house work with limited or no assistance; able to grocery shop with limited or no assistance; able to manage medications with limited or no assistance; able to manage money with limited or no assistance; able to prepare meals with limited or no assistance; able to use the phone with limited or no assistance Falls Risk Assessment:no frequent falls while walking; no fall in the past year; no fall since last visit; no dizziness/vertigo Home Safety:no unsafe randal hazzards; no unsafe stairs; no unsafe gas appliances; working smoke/CO detectors; wears protective head gear for biking/high velocity; use of seatbelts; practicing 'safer sex'; no vision or hearing loss while driving; no fire arms; has hand bars in the bathroom/shower; good lighting in the home Dean Cannon, DO [address], [place], [address], [facility] Internal Medicine 05/30/2024 10:59:43 OBGyn Episode No OBEpisode recorded.
--- OUTSIDE RECORDS SUMMARY | 2024-12-14 07:58 | XMS_ITS | Clinical Summary ---
Author Organization [facility] Address [address] [id number] Care Team Providers Care Cath Laboratory Technician Name Role Phone Dean Teixeira Primary Care Provider [phone] Allergies No known active allergies Social History Tobacco Use Types Packs/Day Years Used Date Smoking Tobacco: Former Smokeless Tobacco: Never Tobacco Cessation:Counseling Given: Not Answered Comments Unknown Sex and Gender Information Value Date Recorded Sex Assigned at Not on file Legal Sex Female 8:57 AM EDT Gender Identity Not on file Sexual Orientation Not on file Last Filed Vital Signs Vital Sign Reading Time Taken Comments Blood Pressure 138/83 02/17/2024 1:10 PM EDT Pulse 90 02/17/2024 1:10 PM EDT Temperature 36.6 ??C (97.9 ??F) 02/17/2024 1:10 PM ED T Respiratory Rate 20 02/17/2024 1:10 PM EDT Oxygen Saturation 96% 02/17/2024 1:10 PM EDT Inhaled Oxygen Concentration - - Weight 81.2 kg (179 lb) 02/17/2024 1:10 PM EDT Height - - Body Mass Index - - Plan of Treatment Upcoming Encounters Date Type Department Care Team (Late st Contact Info) Description 01/31/2025 Appointment [facility] Radiation Oncology [address] [place] [address] 02/15/2025 10:00 AM EDT Appointment [facility] Radiation Oncology [address] [place] [address] Basilio Recinos MD [address] [place] [address] Health Maintenance Due Date Last Done Comments Medicare AWV 11/28/1941 Pneumococcal Vaccine: 50+ Years (1 of 2 - PCV) 1961 Osteoporosis Screening 1992 COVID-19 Vaccine ( season) 2024 07/01/2021, 11/04/2020, 10/07/2020 Alcohol/Substance Use Screening 08/03/2024 Depression Screening and Follow-Up 08/03/2024 Health Care Proxy Review 08/03/2024 Social Drivers of Health Annual Screening 08/03/2024 Influenza Vaccine (Season Ended) 2025 04/01/2023, 05/14/2022, 04/09/2021, Additional history exists DTaP,Tdap,and Td Vaccines (2 - Td or Tdap) 04/08/2032 04/08/2022 Zoster Vaccines Completed 03/19/2021, 01/15/2021 RSV Vaccine (60+ years old and patients) Completed 05/12/2023 Hepatitis B Vaccines Aged Out No long er eligible based on patient's age to complete [place] [id number] [facility] FED 65 PLUS on file Care Teams Cath Laboratory Technician Relationship Specialty Start Date End Date Dean Teixeira [address] [place] [address] PCP - General Internal Medicine 02/21/19
--- OUTSIDE RECORDS SUMMARY | 2024-12-14 07:58 | XMS_ITS | Clinical Summary ---
Author Organization [facility] Address [address] [place] [address] Care Team Providers Care Boiler Technician Name Role Phone Dean Teixeira DO Primary Care Provider [phone] Allergies Active Allergy Reactions Criticality Noted Date Comments Erythromycin 01/10/2019 Medications Medication Sig Dispensed Refills Start Date End Date Status aspirin EC 81 MG tablet Take 81 mg by mouth daily. 0 Active B Complex Vitamins (VITAMIN-B COMPLEX PO) Take by mouth daily. 0 Active FLUoxetine (PROzac) 20 MG capsule Take 20 mg by mouth daily. 0 Active simvastatin (ZOCOR) tablet 10 mg Take 10 mg by mouth every night at bedtime. 0 Active Multiple Vitamins-Minerals (OCUVITE PO) Take by mouth daily. 0 Active Calcium Carb-Cholecalciferol (CALCIUM 600+D3) 600-200 MG-UNIT TABS Take by mouth. 0 Active vitamin B-12 (CYANOCOBALAMIN) tablet 1000 mcg Take 1,000 mcg by mouth daily. 0 Active vitamin A 8000 UNIT capsule Take 8,000 Units by mouth daily. 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, estrogen receptor positive 03/24/2019 Social History Tobacco Use Types Packs/Day Years Used Date Smoking Tobacco: Never Assessed Sex and Gender Information Value Date Recorded Sex Assigned at Not on file Gender Identity Not on file Sexual Orientation Not on file Job Start Date Occupation Industry Not on file Not on file Not on file Last Filed Vital Signs Vital Sign Reading Time Taken Comments Blood Pressure 139/67 01/29/2021 10:16 AM EDT Pulse 89 01/29/2021 10:16 AM EDT Temperature 36.8 ??C (98.3 ??F) 01/29/2021 10:16 AM E DT Respiratory Rate - - Oxygen Saturation 99% 01/29/2021 10:16 AM EDT Inhaled Oxygen Concentration - - Weight 83 kg (183 lb) 01/29/2021 10:16 AM EDT Height 162.6 cm (5' 4 ) 01/31/2020 9:47 AM EDT Body Mass Index 31.41 01/31/2020 9:47 AM EDT Plan of Treatment Health Maintenance Due Date Last Done Comments Pneumococcal Vaccine (1 of 2 - PCV) 1948 Depression Screening 1954 Preventative Health Evaluation 1960 DTap / Tdap / Td (1 - Tdap) 1961 Shingrix-Zoster Vaccine (1 o f 2) 1961 Fall Risk Assessment 11/28/2007 Osteoporosis Screening (DEXA Scan) 11/28/2007 RSV Adult > 60+ Yrs or (1 - 1-dose 75+ series) 2017 COVID-19 Vaccine (3 - Mixed Product risk series) 12/02/2020 11/04/2020, 10/07/2020 Influenza Vaccine (#1) 2024 05/24/2018 Hepatitis B Vaccines Aged Out No long er eligible based on patient's age to complete this topic RSV Ped < 20 months Aged Out No longe r eligible based on patient's age to complete this topic Care Teams Boiler Technician Relationship Specialty Start Date End Date Dean Teixeira DO [address] [place] [address] PCP - General Internal Medicine 03/24/19
--- OUTSIDE RECORDS SUMMARY | 2024-12-14 07:58 | XMS_ITS | Referral Summary ---
Author Organization [facility] Address [address] [place] [address] Care Team Providers Care Finished Garment Inspector Name Role Phone Dean Teixeira Primary Care Provider [phone] Allergies No known active allergies Social History [...] (Late st Contact Info) Description 01/31/2025 Appointment [facility] Radiation Oncology [address] [place] [address] 02/15/2025 10:00 AM EDT Appointment [facility] Radiation Oncology [address] [place] [address] Basilio Recinos MD [address] [place] [address] Insurance [facility]ICARE [facility] 65 PLUS on file Care Teams Finished Garment Inspector Relationship Specialty Start Date End Date Dean Teixeira [address] [place] [address] PCP - General Internal Medicine 02/21/19
--- OUTSIDE RECORDS SUMMARY | 2024-12-14 07:58 | XMS_ITS | Data Portability ---
Author Organization [place] - [employer], [employer], [facility] Address [address] [place] [address] Care Team Providers Care Brand Activation Manager Name Role Phone CONCHA MIRANDA Referring Provider Assessment No assessment recorded. Plan of Treatment Reminders Order Date Submit Date Provider Last Modified By Organization Details Last Modified Time Details Appointments None recorded. Lab None recorded. Referral None recorded. Procedures None recorded. Surgeries None recorded. Imaging None recorded. Medication Orders Pepcid 20 mg tablet 2019 020 INTERFACE [id number], [address] [place], [address], 0 15:32:49 cefuroxime axetil 250 mg tablet 2019 020 [email or web address] Not available 0 18:34:42 codeine 10 mg-guaifen esin 100 mg/5 mL oral liquid 2019 020 [email or web address] Not available 0 16:12:54 Patient TargetsNo targets recorded. Patient Instructions Encounter Date Encounter Id Patient Instructions Last Modified By Organization Details Last Modified Time 07/30/2013 [id number] Patient understands instructions and will seek medical attention if symptoms worsen as directed. [email or web address] Not available 07/30/2013 12:04:57 09/12/2019 [id number] MORE FLUIDS AND RECHECK IN 4 DAYS IF NEEDED. DO NOT USE ANTIBIOTIC UNLESS MUCH WORSE. [email or web address] Not available 09/12/2019 15:34:18 Reason for Referral None Reported. Problems Name Problem SNOMED Code Status Onset Date Resolution Date Notes Provider Name and Address Organization Details Recorded Time Insect bite - wound 250611225 Active Concha Miranda MD [address] [facility], [place], [address] , [facility] 07/30/2013 12:04:57 Problem Notes None recorded. Procedures Surgical History Date Name Laterality Status Provider Name and Address Organization Details Recorded Time 9 Date of Last Mammogram completed Tricia Dorseyton [facility] 09/12/2019 15:01:36 1 Colonoscopy completed Luis Ashbyond [facility] 07/30/2013 11:39:04 8 Mastectomy completed Luis Ashbyond [facility] 07/30/2013 11:39:04 8 Breast biopsy completed Luis Tee [facility] 07/30/2013 11:39:04 Imaging Results None recorded. Procedure Notes None recorded. Medical Equipment None Reported. Allergies Allergen ID Allergen Name Allergen Category Reaction Reaction Severity Criticality Documentation Date Start Date Code Code System Note Provider Name and Address Organization Details Recorded Time 741396 erythromy william medicatio n itching rash Not available Not available Not available 07/30/2013 4053 RxNorm Luis Tee [facility] 3 11:39:04 997829 doxycycli ne Not available Not available Not available Not available 09/12/2019 3640 RxNorm Tricia Hernandez [facility] 0 15:02:50 Medications Name Sig Start Date Stop Date Status Note LastModified by Organization Details LastModified Time cefuroxime axetil 250 mg tablet Take 1 tablet every 12 hours by oral route for 10 days. 2019 active Not Available Not Available Not Avai lable prednisone 20 mg tablet active Not Available Not Available Not Available simvastatin 20 mg tablet 09/12 completed Not Available Not Available Not Available codeine 10 mg-guaifene sin 100 mg/5 mL oral liquid 1-2 TEASPOONS EVERY 6 HOURS NEEDED FOR COUGH 2019 active Not Available Not Available Not Avai lable Pepcid 20 mg tablet Take 1 tablet twice a day by oral route for 10 days. 2019 active Not Available Not Available Not Avai lable fluoxetine 20 mg capsule 09/12 completed Not Available Not Available Not Available vitamin B complex active Not Available Not Available Not Available B-12 Compliance active Not Available Not Available N ot Available Vitals Date Recorded Body weight Body height Body mass index (BMI) Body temperature Heart rate Oxygen saturation Oxygen saturation in Arterial blood by Pulse oximetry Systolic blood pressure Diastolic blood pressure Provider Name and Address Organization Details Last Updated DateTime 3 29993.5 1816 g 162.56 cm 28.8 kg/m2 97.5 [degF] 79 /min 97 % 97 % 130 mm[Hg] 82 mm[Hg] Luis Randal [facility] 3 11:44:07 Date Recorded Body weight Body mass index (BMI) Body height Body temperature Heart rate Respiratory rate Oxygen saturation Oxygen saturation in Arterial blood by Pulse oximetry Systolic blood pressure Diastolic blood pressure Provider Name and Address Organization Details Last Updated DateTime 0 79003.2 2 g 31.1 kg/m2 162.56 cm 99.4 [degF] 101 /min 16 /min 98 % 98 % 141 mm[Hg] 91 mm[Hg] T[facility] 0 15:01:03 Social History Question Answer Notes LastModified by [employer] Details LastModified Time Tobacco Smoking Status Never [facility]oker [facility]2013 11:39:04 Do You Have An Advance Directive? No [email or web address] Information not available 07/30/2013 What Is Your Level Of Caffeine Consumption? Moderate [email or web address] Information not available 09/12/2019 What Type Of Diet Are You Following? REGULAR Information not available 09/12/2019 Education 12 [email or web address] Information no t available 07/30/2013 Alcohol Use No [email or web address] Information n ot available 07/30/2013 Marital Status Informatio n not available 07/30/2013 Are You Sexually Active? No [email or web address] Information not available 09/12/2019 Sex: Unknown Functional Status Question Answer Note LastModified by [employer] Details LastModified Time What is your level of alcohol consumption? Occasional [email or web address] Information not available 09/12/2019 Do you or have you ever used smokeless tobacco? Never used smokeless tobacco [email or web address] Information not available 09/12/2019 What is your exercise level? Occasional Information not available 07/30/2013 Mental Status None recorded. Family History Relationship Description Onset Age of this Age Resolved Age Notes LastModified by Organization Details LastModified Time Mother Alzheimer's disease [email or web address] Not available 09/12 15:01:29 Father Myocardial infarction [email or web address] Not available 09/03 15:01:29 Medical History Condition Response Cancer (location) Y Other N Gout N Thyroid Disease N Kidney Stones N Emphysema/COPD N Measles/Mumps N Sexually Transmitted Disease N Depression N Prostate Problems N Vascular Disease N Rash/Skin Condition N Amputation (location) N Parkinson's N Paralysis N Headaches/Migraines N Cardiac Pacemaker/defibrillator N Nerve Damage / Neuropathy N Arthritis N Sleep disorder/Insomnia N Infertility N Heart disease / Heart Attack N Crohn's Disease N HIV/AIDS N Stroke/TIA N High Cholesterol Y Colon Problems N Serious Injuries N Kidney Disease N Memory Loss/Alzheimer's N Gallbladder disease N High blood pressure N Congestive heart failure N Falls N Alcohol Overuse N Blood Thinner Treatment N Hormone Replacement N Nervous Breakdown N Tang's Esophagus N Anemia N Urinary Problems N Colon Polyps N Gastritis N Hospitalizations (other than operations) N Back pain N Diabetes N Rheumatic Fever N Bleeding Disorder N Cardiac Arrhythmias /irregular heart rat e N Osteopenia/Osteoporosis Y Anxiety/Stress N Asthma N Vision Problems N Erectile / Sexual Dysfunction N Ostomies (location) N Seizures N Jaundice N Sleep Apnea N Hepatitis N Past Reacton to Contrast Media N Cirrhosis N GERD/Ulcer N Chicken Pox N Allergies (other than meds) N Gynecological History Statement/Question Response Menses Monthly N STIs/STDs N If Post Menopausal, Age at Menopause 50 Yrs Date of Last Mammogram 05/17/2019 Age at First Child 27yrs Obstetrics History GPAL:G 0 P 0 0 0 0 Immunizations Vaccine Type Date Status Note Provider Nam e and Address Organization Details Recorded Time Influenza, split virus, quadrivalent, preservative 9 completed TRISTEN [facility] - [facility], [facility] 09/12/2019 15:04:32 tetanus toxoid, adsorbed 3 completed Not Available [employer] 08/20/2019 04:02:46 Past Encounters Encounter ID Performer Location Encounter Start Date Encounter Closed Date Diagnosis/Indication Diagnosis SNOMED-CT Code Diagnosis ICD10 Code Diagnosis Note [id number] Concha Miranda MD [facility] [address] [facility] [address] [place] [address] 07/30/2013 11:09:14 07/30/2013 12:12:59 Insect bite - wound 958134045 Lesion inflammed from sandals rubbing onto bite site, and currently NOT infected but irritated. Reassured pt and , and to keep clean and dry. May soak with Epson salt and clean with H2O2/ Betadine. Avoid rubbing lesion with sandals and allow to air dry/scab. Pt overdue for Td shot. Explainede s &s's of infection to pt and and to RTC if worsens, no need for po Abx at this time. Poisoning by sting AND/OR bite of fire ant [id number] Otoniel Lee DO [facility] [address] [facility] [id number] [facility] [address] [place] [address] 09/12/2019 14:14:57 09/12/2019 15:49:20 Cough 70399127 R05 Health Concerns Section Related Observation LastModified by Organization Detai ls LastModified Time None Recorded Concern Status LastModified by Organization Details LastModified Time None Recorded Advance Directives Directive N: Payers Insurance Date Sequence Insurance Name Policy Number Policy Todd Covered Member ID Todd Member ID Guarantor Name 09/12/2019 1 [place] Precious Aguero [id number] Jonn Aguero 09/12/2019 2 [place] [employer] ([place]O) 105 Jonn Aguero [id number] Jonn Aguero Notes Date Note Type Note Provider Name and Address Organization Details Recorded Time 09/12/2019 text/html Cough / ColdReported bypatient.Reason for visit:acute complaint Quality:dry / nonproductive Severity:unchanged Onset/Timing:abrupt ;1 weeks ago Context:usual activity Alleviating factors:nothing helps Aggravating factors:lying down Associated Symptoms:no fever; no cold/flu like symptoms; no shortness of breath; no congestion; no sore throat; no post nasal drip Otoniel Lee DO [address] [facility] [address], [place], [address], [facility] - [facility], [facility] 09/12/2019 15:35:22 OBGyn Episode No OBEpisode recorded.
--- OUTSIDE RECORDS SUMMARY | 2024-12-14 07:58 | XMS_ITS | Clinical Summary ---
Author Organization [facility] Address [address] [place] [address] Care Team Providers Care Computing Services Director Name Role Phone Dean Teixeira DO Primary Care Provider [phone] Medical History Medical History Date Comments Breast cancer (CMS/HCC V24, CMS/HCC V28) DX:Breast cancer ([facility]) Social History Tobacco Use Types Packs/Day Years Used Date Smoking Tobacco: Never Assessed Comments Unknown Sex and Gender Information Value Date Recorded Sex Assigned at Not on file Legal Sex Female 5:19 PM EDT Gender Identity Not on file Sexual Orientation Not on file Obstetrics History Plan of Treatment Health Maintenance Due Date Last Done Comments DTaP,Tdap,and Td Vaccines (1 - Tdap) 1961 Pneumococcal Vaccine: 50+ Ye ars (1 of 1 - PCV) 1992 Zoster Vaccines (1 of 2) 1992 RSV Immunization Adult Patie nts (1 - 1-dose 75+ series) 2017 COVID-19 Vaccine ( - 2023-2 5 season) 2024 Influenza Vaccine (Season Ended) 2025 HIB Vaccines Aged Out No longer eligi ble based on patient's age to complete this topic HPV Vaccines Aged Out No longer eligi ble based on patient's age to complete this topic Hepatitis A Vaccines Aged Out No long er eligible based on patient's age to complete this topic Hepatitis B Vaccines Aged Out No long er eligible based on patient's age to complete this topic IPV Vaccines Aged Out No longer eligi ble based on patient's age to complete this topic MMR Vaccines Aged Out No longer eligi ble based on patient's age to complete this topic Meningococcal ACWY Vaccine Aged Out N o longer eligible based on patient's age to complete this topic Meningococcal B Vaccine Aged Out No l onger eligible based on patient's age to complete this topic RSV Immunization Patients Un john 20 months Aged Out No longer eligible b ased on patient's age to complete this topic Varicella Vaccines Aged Out No longer eligible based on patient's age to complete this topic Care Teams Computing Services Director Relationship Specialty Start Date End Date Dean Teixeira DO [address] [facility] [address] [place], [place] PCP - General Internal Medicine 03/24/19
[2024-12-14 13:32] LABS: MANUAL DIFF FLAG NO
[2024-12-14 13:57] LABS: Basophils Absolute Auto 0.1 X10*3/uL (0.0-0.2); Basophils Percent Auto 1.1 % (0-2); Eosinophils Absolute Auto 0.2 X10*3/uL (0.0-0.4); Eosinophils Percent Auto 2.4 % (0-4); Hematocrit 39.5 % (37.0-47.0); Hemoglobin 12.9 g/dl (12.0-16.0); Imm Gran Abs Auto 0.03 X10*3/uL (0.00-0.03); Imm Gran Pct Auto 0.4 % (0.0-0.4); Lymphocytes Absolute Auto 2.1 X10*3/uL (1.2-4.9); Lymphocytes Percent Auto 29.2 % (20-40); Mean Corpuscular HGB Conc 32.7 g/dl (31.0-35.0); Mean Corpuscular Hemoglobin 30.4 pg (27.0-33.0); Mean Corpuscular Volume 92.9 fL (80.0-98.0); Mean Platelet Volume 10.4 fL (9.4-12.3); Monocytes Absolute Auto 0.6 X10*3/uL (0.1-1.2); Monocytes Percent Auto 8.1 % (2-11); Neutrophils Absolute Auto 4.2 x10*3/uL (2.0-8.3); Neutrophils Percent Auto 58.8 % (45-73); Platelet Count 292 X10*3/uL (160-400); Red Blood Count 4.25 X10*6/uL (4.20-5.50); Red Cell Distribution Width 13.2 % (11.0-16.0); White Blood Count 7.2 X10*3/uL (4.8-10.8)
[2024-12-14 14:44] LABS: Alanine Aminotransferase 22 U/L (0-31); Albumin Level 4.1 g/dL (3.5-5.0); Alkaline Phosphatase 52 U/L (39-117); Anion Gap 14 (12-20); Aspartate Amino Transferase 35 U/L (5-31); Bilirubin Total 0.5 mg/dL (0.0-1.0); Blood Urea Nitrogen 21 mg/dL (9-16); Calcium 9.3 mg/dL (8.4-10.2); Carbon Dioxide 24 mmol/L (22-29); Chloride 108 mmol/L (96-108); Cholesterol 197 mg/dL (<200); Estimated Glomerular Filt Rate 59; Glucose Random 94 mg/dL (60-115); HDL Cholesterol 47 mg/dL (>40); LDL Cholesterol Calculated 135 mg/dL (<100); Potassium 4.7 mmol/L (3.3-5.1); Sodium 141 mmol/L (135-145); Triglycerides 78 mg/dL (<150); Vitamin D 25-OH Total 62.7 ng/mL (>30)
== END 2024-12-14 07:55 | disposition home or self-care (01) ==
LOC: HO.MANLDS 07:54
PROVIDERS: Visit Provider Internal Medicine
DX: E78.00 Pure hypercholesterolemia, unspecified (principal)
CPT/HCPCS: 36415; 80053; 80061; 82306; 85025

== ENCOUNTER 2025-05-23 05:58 | Outpatient (REF) | payer MEDICARE, BC, SELFPAY ==
--- OUTSIDE RECORDS SUMMARY | 2025-05-23 06:02 | XMS_ITS | Clinical Summary ---
Author Organization [facility] Address [address] [place], [place] [id number] Care Team Providers Care Data Migration Consultant Name Role Phone Dean Teixeira Primary Care Provider [phone] Allergies Active Allergy Reactions Criticality Noted Date Comments Erythromycin Estolate Hives High 11/05/2022 Medications vitamin B complex (B COMPLEX 1 ORAL) daily. Acti ve mecobalamin (B12 ACTIVE ORAL) once a day. Active multivit-min/ir on/FA/vit K/lut (CENTRUM SILVER WOMEN ORAL) Take by mouth once a day. Active inulin-vitamin D3 (Fiber Gummies with Vitamin D3) 2,500 mg- 500 unit tablet,chewable Chew and swallow by mouth once a day. Active vitamin A 2,400 mcg capsule Take by mouth once a day. Active L.acid-B.animal is,bifid, (Probiotic Digestive System Sup) 5 billion cell capsule Take by mouth once a day. Active Social History Tobacco Use Types Packs/Day Years Used Date Smoking Tobacco: Former Smokeless Tobacco: Never Tobacco Cessation:Counseling Given: Not Answered Comments Unknown Sex and Gender Information Value Date Recorded Sex Assigned at Not on file Legal Sex Female 8:57 AM EDT Gender Identity Not on file Sexual Orientation Not on file Last Filed Vital Signs Vital Sign Reading Time Taken Comments Blood Pressure 136/84 02/15/2025 9:45 AM EDT Pulse 90 02/15/2025 9:45 AM EDT Temperature 36.4 C (97.6 F) 02/15/2025 9:45 AM EDT Respiratory Rate 18 02/15/2025 9:45 AM EDT Oxygen Saturation 97% 02/15/2025 9:45 AM EDT Inhaled Oxygen Concentration - - Weight 82.6 kg (182 lb) 02/15/2025 9:45 AM EDT Height - - Body Mass Index - - Plan of Treatment Health Maintenance Due Date Last Done Comments Osteoporosis Screening 1992 Pneumococcal Vaccine: 50+ Years (1 of 1 - PCV) 1992 Alcohol/Substance Use Screening 08/03/2024 Health Care Proxy Review 08/03/2024 COVID-19 Vaccine (4 - season) 2025 07/01/2021, 11/04/2020, 10/07/2020 Influenza Vaccine (#1) 2025 , 04/01/2023, 05/14/2022, Additional history exists DTaP,Tdap,and Td Vaccines (2 - Td or Tdap) 04/08/2032 04/08/2022 Zoster Vaccines Completed 03/19/2021, 01/15/2021 RSV Vaccine (60+ years old and patients) Completed 05/12/2023 Hepatitis B Vaccines Aged Out No long er eligible based on patient's age to [place] [id number] [facility] Member Subscriber Plan / Payer (Ef fective 2015-Present) Name:Precious Trevizo Relation to Subscriber:Spouse Name:ROGELIO TREVIZO Date of :1900 Address: [address] [place] [address] Payer ID:[id number] (NAIC) Group ID:[id number] Type:Not on file Address: [address] [place] [address] [facility] FED 65 PLUS on file MEDICARE [facility] FEDERAL Member Subscriber Plan / Payer ( fective 2015-Present) Name:Precious Trevizo Relation to Subscriber:Spouse Name:ROGELIO TREVIZO Date of :1900 Address: [address] [place] [address] Payer ID:[id number] (NAIC) Group ID:[id number] Type:Not on file Address: [address] [place] [address] Care Teams Data Migration Consultant Relationship Specialty Start Date End Date Lluvia Dean [address] [place] [phone] PCP - General Internal Medicine 02/21/19
--- OUTSIDE RECORDS SUMMARY | 2025-05-23 06:03 | XMS_ITS | Clinical Summary ---
Author Organization [facility] Address [address] [place] [address] Care Team Providers Care Supervisor Accounting Clerks Name Role Phone Dean Teixeira DO Primary Care Provider [phone] Allergies Active Allergy Reactions Criticality Noted Date [...] 89 01/29/2021 10:16 AM EDT Temperature 36.8 C (98.3 F) 01/29/2021 10:16 AM EDT Respiratory Rate - - Oxygen Saturation 99% [...] series) 12/02/2020 11/04/2020, 10/07/2020 Influenza Vaccine (#1) 2025 05/24/2018 Hepatitis B Vaccines Aged Out No long er eligible based on patient's age to complete this topic RSV Ped < 20 months Aged Out No longe r eligible based on patient's age to complete this topic Care Teams Supervisor Accounting Clerks Relationship Specialty Start Date End Date Dean Teixeira DO [address] [place] [address] PCP - General Internal Medicine 03/24/19
--- OUTSIDE RECORDS SUMMARY | 2025-05-23 06:03 | XMS_ITS | Encounter Summary ---
Author Organization [facility] Address [address] [facility] [address] [place] [address] Phone Care Team Providers Care Personal Lines Account Executive Name Role Phone Unavailable Primary Care Provider Unavailabl e Encounter Details Date Type Department Care Team (Latest Contact Info) Description 04/11/2020 Transcribe Orders Virtual Department [address] [place] [address] Nori Anthony PA [address] [place] [address] [place] [address] Solitary lung nodule (Primary Dx) Social History Tobacco Use Types Packs/Day Years Used Date Smoking Tobacco: Never Assessed Comments Unknown Sex and Gender Information Value Date Recorded Sex Assigned at Not on file Legal Sex Female 6:46 PM EST Gender Identity Not on file Sexual Orientation Not on file documented as of this encounter Plan of Treatment Not on file documented as of this encounter Visit Diagnoses Diagnosis Solitary lung nodule- Primary Other diseases of lung, not elsewhere classified documented in this encounter Additional Source Comments The information contained in this document represents components of the legal health record. It is not the complete legal health record.[facility]
--- OUTSIDE RECORDS SUMMARY | 2025-05-23 06:03 | XMS_ITS | Clinical Summary ---
Author Organization [facility] Address [address] [address] Phone Care Team Providers Care Green Building Materials Designer Name Role Phone Unavailable Primary Care Provider Unavailabl e Social History Tobacco Use Types Packs/Day Years Used Date Smoking Tobacco: Never Assessed Comments Unknown Sex and Gender Information Value Date Recorded Sex Assigned at Not on file Legal Sex Female 6:46 PM EST Gender Identity Not on file Sexual Orientation Not on file Plan of Treatment Not on file Medical Devices Not on file Additional Source Comments The information contained in this document represents components of the legal health record. It is not the complete legal health record.[facility]
--- OUTSIDE RECORDS SUMMARY | 2025-05-23 06:03 | XMS_ITS | Encounter Summary ---
Author Organization [facility] Address [address] [place] [address] Phone Care Team Providers Care Pollution Control Technician Name Role Phone Unavailable Primary Care Provider Unavailabl e Encounter Details Date Type Department Care Team (Latest Contact Info) Description 01/19/2019 Transcribe Orders Virtual Department [address] [place] [address] Francy Rene PA-C 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 It is not the complete legal health record.[facility]
--- OUTSIDE RECORDS SUMMARY | 2025-05-23 06:03 | XMS_ITS | Data Portability ---
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 MUST MEET 2 OUT OF [...] EACH ELEMENT THAT IS COVERED Not available 05/08/2025 09:14:08 Plan of Treatment Reminders Order Date Submit Date Provider Last Modified By Organization Details Last Modified Time Details Appointments FOLLOW UP 15 2025 09:15A M DR CANNON Not available Not available Not available Lab lipid panel, blood 2024 025 [facility], [address] [place] [address], [id number], 05/08/2025 09:17:19 CBC 2024 025 [facility], [address] [place] [address], [id number], 05/08/2025 09:17:19 CMP, serum or plasma 2024 025 [facility], [address] [place] [address], [id number], 05/08/2025 09:17:19 TSH, serum or plasma 2024 025 [facility], [address] [place] [address], [address], 05/08/2025 09:17:19 lipid panel, blood 2023 024 [facility], [address] [place] [address], [id number], 12/04/2023 16:04:56 CBC w/ auto diff 2023 024 [facility], [address] [place] [address], [id number], 12/04/2023 16:04:56 Referral None recorded. Procedures None recorded. Surgeries None recorded. Imaging MRI, knee, w/o contrast 2023 024 [facility], [address] [place] [address], [id number], 12/14/2023 09:20:45 Medication Orders cephalexi n 500 mg capsule 2023 025 [facility] #[id number], [address] [place], [address], 12/21/2024 09:06:46 Patient TargetsNo targets recorded. Patient Instructions Encounter Date Encounter Id Patient Instructions Last Modified By Organization Details Last Modified Time 12/04/2023 [id number] meniscus tear: care instructions Not available 12/04/2023 16:05:18 05/30/2024 [id number] advance care planning: care instructions Not available 05/30/2024 10:59:01 Discussed and explained advance directives such as standard forms to the . Face to face discussion lasted for a duration of ___ minutes. Not available 05/04/2024 15:46:07 03/01/2025 [id number] pneumonia: care instructions Not available 03/01/2025 15:56:34 Reason for Referral None Reported. Results Created Date Observation Date Name Description Value Unit Range Abnormal Flag Note LastModifiedBy Organization Detail LastModifiedTime 01/19/20 24 01/14/2024 MRI, knee, w/o contr ast No observ ation record ed. [facility] (Medical Records) [address] [facility], [place], [address], 01/20/2024 12:03:03 Result Notes None recorded. Problems Name Problem SNOMED Code Status Onset Date Resolution Date Notes Provider Name and Address Organization Details Recorded Time Depressi ve disorder 45992924 Active 2017 Not Available [facility] 2 08:56:40 Hypercho lesterol emia 66428809 Active 2017 Dean Cannon DO [address] [place] [address], [phone], [facility] 5 09:14:09 History of malignan t neoplasm of breast 538140318 Active 2017 Not Available [facility] 2 08:56:40 Osteopen ia 704891444 Active 2018 Not Available [facility] 2 08:56:40 Lyme disease 09696673 Active 2018 Not Available [facility] 2 08:56:40 Female urinary stress incontin ence 66422912 Active 2020 Not Available [facility] 2 08:56:40 Secondar y peripher al neuropat hy 001076 Active 2020 lyme ds Not Available [facility] 2 08:56:40 Pancytop enia 500267279 Completed 202112/10/2022 Dean Cannon DO [address] [place] [address], [phone], [facility] 3 10:25:19 Cyst of kidney 603569976 Active 2021 Dean Cannon DO [address] [place] [address], [address], [facility] 2 14:51:56 Pain of right knee joint 64585042938 4100 Active 2022 Dean Cannon, DO [address] [place] [address], [address], [facility] 3 10:21:26 Bilatera l osteoart hritis of knees 58197514633 9107 Active 2022 Dean Cannon, DO [address] [place] [address], [address], [facility] 3 09:51:03 Eczema 78911331 Active 2022 Dean Cannon, DO [address] [place] [address], [address], [facility] 3 22:09:28 Tear of meniscus of knee 087744970 Active 2023 Dean Cannon DO [address] [place] [address], [address], [facility] 4 16:04:22 Cellulit is of lower leg 598904274 Active 2023 Dean Cannon, DO [address] [place] [address], [address], [facility] 4 10:58:34 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 880105161 Active 2024 Dean Cannon, DO [address] [place] [address], [address], [facility] 5 09:18:39 Acute contact dermatit is 565933482 Active 2024 Dean Cannon DO [address] [place] [address], [address], [facility] 5 15:40:06 Pulmonar y embolism 12101007 Active 2024 Dean Cannon DO [address] [place] [address], [address], [facility] 5 15:47:25 Pneumoni a 642681666 Active 2024 Dean Cannon DO [address] [place], [address], [facility] 5 15:48:34 Impacted cerumen of bilatera l ears 82157262052 63413 Active 2024 Dean Cannon DO [address] [place] [address], [address], [facility] 5 16:57:33 Problem Notes None recorded. Procedures Surgical History Date Name Laterality Status Provider Name and Address Organization Details Recorded Time 03/01/20 25 Cerumen Removal completed Dean Cannon DO [address] [place] [address], [phone], [facility] 03/01/2025 16:56:25 03/02/20 19 Cerumen Removal completed November Edgard, [facility] [address] [place], [address], [facility] 03/02/2019 10:50:49 05/13/20 18 Most Recent Mammogram completed [facility] 01/18/2019 15:36:29 excision of left breast completed [facility] 01/18/2019 15:33:32 Imaging Results None recorded. Procedure Notes None recorded. Medical Equipment None Reported. Allergies Allergen ID Allergen Name Allergen Category Reaction Reaction Severity Criticality Documentation Date Start Date Code Code System Note Provider Name and Address Organization Details Recorded Time 1494 erythromy william medicatio n Not available Not available Not available 12/30/2017 4053 [facility] 8 15:34:00 3163 doxycycli ne Not available Not available Not available Not available 02/09/2019 3640 RxNorm Dean Cannon DO [address] [place] [address], [address], [facility] 9 12:02:43 3543 Fosamax medicatio n other Not available Not available 05/20/2019 85261 5 RxNorm Dean Cannon, DO [address] [place], [address], [facility] 9 09:29:29 Medications Name Sig Start Date Stop Date Status Note LastModified by Organization Details LastModified Time latanoprost 0.005 % eye drops INSTILL 1 DROP IN BOTH EYES DAILY AT BEDTIME active Not Available Not Available No t [...] THREE TIMES A DAY FOR 7 DAYS 12/21 completed Not Available Not Available Not Available simvastatin 20 mg tablet 03/26 completed [...] Available mupirocin 2 % topical ointment APPLY TWICE DAILY TO EXCISION SITES NEEDED 12/21 completed Not Available Not Available Not Available gabapentin 100 mg capsule TAKE 1 CAPSULE BY MOUTH THREE TIMES A DAY 12/10 completed Not Available Not Available Not Available Aspir-81 mg tablet,chito yed release Take 1 tablet every day by oral route. 01/19 completed Not Available Not Available Not Available levofloxaci n 500 mg tablet 02/09 completed Not Available Not Available Not Available methylpredn isolone 4 mg tablets in a dose pack TAKE 6 TABLETS ON DAY 1 DIRECTED ON PACKAGE AND DECREASE BY 1 TAB EACH DAY FOR A TOTAL OF 6 DAYS 05/08 completed Not Available Not Available Not Available [...] in Arterial blood by Pulse oximetry Systolic And Diastolic Provider Name and Address Organization Details Last Updated DateTime 4 159.39 cm 32 kg/m2 28323.0 3 g 82 /min 98 % 98 % 120/60 mm[Hg] Liya Saldaña [facility] 4 15:54:30 Date Recorded Body height Oxygen saturation Oxygen saturation in Arterial blood by Pulse oximetry Heart rate Systolic And Diastolic Provider Name and Address Organization Details Last Updated DateTime 5 160.02 cm 97 % 97 % 90 /min 124/78 mm[Hg] Merle Young [facility] 5 09:09:31 Date Recorded Body height Body mass index (BMI) Body weight Oxygen saturation Oxygen saturation in Arterial blood by Pulse oximetry Heart rate Systolic And Diastolic Provider Name and Address Organization Details Last Updated DateTime 5 160.02 cm 31.5 kg/m2 51301.4 4 g 98 % 98 % 68 /min 126/78 mm[Hg] Merle Young [facility] 5 15:13:46 Date Recorded Body height Body mass index (BMI) Body weight Heart rate Oxygen saturation Oxygen saturation in Arterial blood by Pulse oximetry Systolic And Diastolic Provider Name and Address Organization Details Last Updated DateTime 5 160.02 cm 32 kg/m2 54067.5 g 82 /min 98 % 98 % 120/80 mm[Hg] Cheyenne Dunlap [facility] 5 09:06:11 Date Recorded Body height Body mass index (BMI) Body weight Heart rate Oxygen saturation Oxygen saturation in Arterial blood by Pulse oximetry Systolic And Diastolic Provider Name and Address Organization Details Last Updated DateTime 4 160.02 cm 31.5 kg/m2 17670.4 4 g 94 /min 98 % 98 % 120/82 mm[Hg] Ash Kelly [facility] 4 10:45:39 Social History Question Answer Notes LastModified by [employer] Details LastModified Time Tobacco Smoking Status Former Smoker Not Available [facility] 06/05/2020 03:36:24 What Was The Date Of Your Most Recent Tobacco Screening? 05/08/2025 [email or web address] Information not available 05/08/2025 Sex: Unknown Functional Status Question Answer Note LastModified by [employer] Details LastModified Time Do you use any illicit or recreational drugs? No Information not available 01/03/2022 Do you or have you ever used any other forms of tobacco or nicotine? No [email or web address] Information not available 12/04/2023 Mental Status None recorded. Family History Nothing Reported. Medical History No medical history recorded. Gynecological History Statement/Question Response Most Recent Mammogram 05/13/2018 Obstetrics History GPAL:G 0 P 0 0 0 0 Immunizations Vaccine Type Date Status Note Provider Nam e and Address Organization Details Recorded Time Influenza, split virus, quadrivalent, preservative 1 completed Dean Cannon, DO [address] [place], [address], [facility] 01/03/2022 14:41:40 COVID-19, mRNA, LNP-S, PF, 100 mcg/0.5mL dose or 50 mcg/0.25mL dose 1 completed Dean Cannon DO [address] [place] [address], [address], [facility] 01/03/2022 14:42:05 Tdap 2 completed Dean Cannon DO [address] [place] [address], [address], [facility] 04/10/2022 09:04:32 Influenza, split virus, quadrivalent, preservative 2 completed Dean Cannon DO [address] [place] [address], [address], [facility] 05/23/2022 14:19:35 influenza, unspecified formulation 5 completed Dean Cannon DO [address] [place] [address], [address], [facility] 05/08/2025 09:21:10 MMR 6 completed Dorota Prabhakar [facility] 01/18/2019 15:34:12 Influenza, split virus, quadrivalent, preservative 8 completed Not Available [facility] 08/20/2019 02:46:31 COVID-19, mRNA, LNP-S, PF, 30 mcg/0.3 mL dose 1 completed Carly campbell [facility] 12/05/2020 09:32:45 COVID-19, mRNA, LNP-S, PF, 100 mcg/0.5mL dose or 50 mcg/0.25mL dose 1 [facility] 12/05/2020 09:32:57 Past Encounters Encounter ID Performer Location Encounter Start Date Encounter Closed Date Diagnosis/Indication Diagnosis SNOMED-CT Code Diagnosis ICD10 Code Diagnosis IMO Codes Diagnosis Note [id number] Dean Cannon DO [facility] [address],[place] [address] 05/21/2018 08:59:26 05/21/2018 10:48:25 Chronic depression 190476658 F34.1 Hypercholesterolemia 136 06913 E78.00 reviewed labs History of malignant neoplasm of breast 330277420 Z85.3 [id number] Dean ThomasYvonne Cannon [facility] [address] [facility],[place] [address] 05/24/2018 13:55:57 05/24/2018 16:53:41 Administration of influenza vaccine 78029994 Z23 [id number] Dean MarthaYvonne Cannon [facility] [address] [facility],[place] [address] 01/19/2019 10:02:07 01/19/2019 11:10:19 Pancytopenia 717149961 D61.818 leukopenia resolved while admitted thrombocyt openia trending upward anemia needs to be rechecked but remained stable while admitted Liver func tion tests outside reference range 809294463 R94.5 believed to be due to doxy. levels trended down after switching from doxy to levaquin markedly improved today, though still elevated will need to check again next week Fever 487261770 R50.9 resolved while admitted Diarrhea 05067592 R19.7 resolved while admitted had coffee this morning thought and caused diarrhea x 1 Abnormal g ait due to muscle weakness 556084917 M62.81 Hypokalemia 36121733 E87 .6 resolved while admitted Hyponatremia 58731058 E8 7.1 resolved while admitted Cyst of kidney 885817711 N28.1 Pain in lower limb 19438 006 M79.604 M79.605 ? 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 and is feeling betterenco uraged to drink water etc Severe dehydration 43957 6000 E86.0 is continuing to drink plenty of water Kidney stone 73402802 N2 0.0 reassuranc e [id number] Dean Cannon [facility] [address] [facility],[place] [address] 03/02/2019 10:18:37 03/02/2019 11:50:49 Cough 30378347 R05 try flonase for post nasal drip get cxr if no improvemen t after 1-2 weeks or if cough worsens History of malignant neoplasm of breast 152958365 Z85.3 Hypercholesterolemia 136 52843 E78.00 Impacted c erumen of bilateral ears 7753156072 860611 H61.23 resolved Hearing loss 18631096 H9 0.0 resolved [id number] Dean Cannon [facility] [address] [facility],[place] [address] 03/25/2019 11:42:24 03/25/2019 12:11:16 Hypercholesterolemia 47988518 E78.00 recent blood work was excellent History of malignant neoplasm of breast 794412911 Z85.3 here and doing well no major issues and has good oncologist s in [place] at [facility] has had recent eval and no new issues Osteopenia 490694576 M85 .80 Numbness of toe 18876225 8 R20.0 will chk lab [id number] Dean Cannon [facility] [address] [facility],[place] [address] 05/20/2019 09:03:01 05/20/2019 09:55:43 Osteopenia 094479677 M85.80 has noted hx off fosamax intoleranc e due to loss of bone mass in jaw while on fosamax even lost a tooth will have her cont vitd3 and we will rechk in december [place] Hypercholesterolemia 136 11865 E78.00 recent blood work was excellent [facility] will rechk and restart the simvastati n if her lab increases in the spring when [place] Chronic depression 37240 0009 F34.1 [id number] Dean Cannon [facility] [address] [facility] [address],[place] [address] 02/20/2020 14:20:58 02/20/2020 15:05:10 History of malignant neoplasm of breast 200503158 Z85.3 Doing well very well, just saw rad onc will see rad-onc in one year Hypercholesterolemia 136 95465 E78.00 recent blood work was excellent Continue to hold statin and recheck next year Cyst of kidney 214176757 N28.1 R sided, likely benign Was seen on CT last year, [place] [id number] Dean Cannon DO [facility] [address] [facility],[place] [address] 03/06/2020 09:39:03 03/06/2020 10:26:23 Adult health examination 447314579 Z00.00 patient was at the ER recently for a kidney stone on the right side has hematuria will set up with urology as she was not given referral by the hospital Active or passive immunization 047034815 Z23 no right now given they are not doing them did discuss with patient Kidney stone 12158696 N2 0.0 will send to urology to have her evaluated was given prednisone and flomax [id number] Dean Cannon DO [facility] [address] [facility],[place] [address] 03/26/2020 09:57:41 03/26/2020 10:44:24 Solitary nodule of lung 188406762 R91.1 4 mm solitary nodule, in the right middle lobe will fu with onc Depressive disorder 5376 9002 F32.9 is feeling down but no SI patient states she does not want to start anything again [id number] Dean Cannon DO [facility] [address] [facility],[place] [address] 12/05/2020 09:24:35 12/05/2020 12:25:55 Hypercholesterolemia 13048273 E78.00 recent blood work was excellent Continue to hold statin and recheck next year Fatigue 90603359 R53.83 [id number] Dean Cannon [facility] [address] [facility],[place] [address] 01/11/2021 10:04:34 01/11/2021 13:01:13 Hypercholesterolemia 48291547 E78.00 recent blood work was excellent Continue to hold statin and recheck next year Female jeffrey good stress incontinence 60801328 N39.3 she will call us and let us know whether the bladder is getting worse Depressive disorder 3548 9007 F32.9 [id number] Dean Cannon [facility] [address] [facility],[place] [facility] [place] [address] 05/21/2021 13:28:23 05/21/2021 14:23:39 Hypercholesterolemia 38460308 E78.00 recent blood work was excellent Continue to hold statin and recheck next year Depressive disorder 3548 9007 F32.9 has been doing ok overallden ies any worsening symptoms Pancytopenia 674421252 D 61.818 stable an not an issue Secondary peripheral neuropathy 574871 G63 we will try some gabapent Postmenopa usal osteopenia 757531218 M85.80 will order bone density [id number] Dean Cannon [facility] [address] [facility],[place] [address] 01/03/2022 14:26:13 01/03/2022 15:27:52 Hypercholesterolemia 60753017 E78.00 recent blood work was excellent Continue to hold statin and recheck next year Osteopenia 379199082 M85 .80 has noted hx off fosamax intoleranc e due to loss of bone mass in jaw while on fosamax even lost a tooth will have her cont vitd3 and we will rechk in december [place] Depressive disorder 3548 9007 F32.9 has been doing ok overallden ies any worsening symptoms Advance care planning 71 5362280 Z71.89 cont Active or passive immunization 515088841 Z23 patient advised of due vaccines (tdap, pneu 13 & 23, shingles) Pancytopenia 523836276 D 61.818 stable an not an issue Secondary peripheral neuropathy 498200 G63 we will try some gabapent [id number] Dean Cannon [facility] [address] [facility],[place] [address] 05/23/2022 14:06:22 05/23/2022 16:50:46 Hypercholesterolemia 79227473 E78.00 recent blood work was excellent Continue to hold statin and recheck next year Depressive disorder 3548 9007 F32.9 has been doing ok overallden ies any worsening symptoms Active or passive immunization 150838391 Z23 patient advised of due vaccines (flu, pneu 13 & 23, shingles) Secondary peripheral neuropathy 870729 G63 we will try some gabapent Cyst of kidney 291043178 N28.1 R sided, likely benign Was seen on CT 2018, not too visible on US but will order repeat when she returns in spring she had a renal US ordered but she cancelled [id number] Dean Cannon DO [facility] [address] [facility],[place] [employer] [place] [address] 12/10/2022 09:54:19 12/10/2022 11:47:35 Hypercholesterolemia 90970216 E78.00 recent blood work was excellent Continue to hold statin and recheck next year History of malignant neoplasm of breast 931995382 Z85.3 Doing well very well, just saw rad onc will see rad-onc in one year Secondary peripheral neuropathy 762360 G63 from lyme disease [id number] Dean Cannon [facility] [address] [facility],[place] [address] 05/01/2023 08:57:33 05/01/2023 13:33:38 Hypercholesterolemia 68655326 E78.00 will order lab Continue to hold statin and recheck next year Pain of ri ght knee joint 6535870397 03876 M25.561 fell on knee going up stairs several weeks agonow very sore [id number] Dean Cannon DO [facility] [address] [facility] [address],[place] [address] 05/29/2023 09:26:14 05/29/2023 12:03:54 Depressive disorder 84002566 F32.9 has been doing ok overallden ies any worsening symptoms Hypercholesterolemia 136 29549 E78.00 will order lab Continue to hold statin and recheck next year Bilateral osteoarthritis of knees 0458416243 81605 M17.0 relates she is actually doing ok Pain of ri ght knee joint 9071233494 11062 M25.561 fell on knee going up stairs several weeks agodoing good [id number] Dean Cannon [facility] [address] [facility],[place] [address] 12/04/2023 15:47:05 12/04/2023 16:41:45 Bilateral osteoarthritis of knees 1529138995 50515 M17.0 relates she is actually doing ok Hypercholesterolemia 136 62808 E78.00 ldl is 120 doing ok reviewed lab in detailCont inue to hold statin and recheck next year Tear of me niscus of knee 927773134 S83.209A noted to have worsening pain and effusion [id number] Dean Cannon [facility] [address] [facility],[place] [address] 05/30/2024 10:22:06 05/30/2024 14:58:18 Adult health examination 518372936 Z00.01 has a cellulitis Screening for osteoporosis 904400527 Z13.820 upon [place] Screening mammography 24 436005 Z12.31 upon [place] from [place] Depression screening 171 904042 Z13.31 here and doing well Cellulitis of lower leg 997105808 L03.119 [id number] Dean Cannon [facility] [facility] Internal Medicine [address] [facility],[place] [address] 12/21/2024 09:00:01 12/21/2024 10:35:36 Depression screening 907900777 Z13.31 here and doing well Hypercholesterolemia 136 80911 E78.00 ldl is 135 doing ok reviewed lab in detailCont inue to hold statin and recheck next year Depressive disorder 3548 9007 F32.9 has been doing ok overallden ies any worsening symptoms Basal cell carcinoma of nasal columella [id number] C44.311 [id number] s/p radiation therapy and looks fantastic [id number] Dean Cannon DO [facility] Internal Medicine [address] [facility], [place] [address] 03/01/2025 15:03:59 03/03/2025 08:28:39 Pneumonia [id number] J18.9 [id number] wrong dx Impacted c erumen of bilateral ears [id number] 601823 H61.23 [id number] DO [facility] Internal Medicine [address] [facility],[place] [address] 05/08/2025 08:53:46 05/08/2025 09:34:16 Depression screening 554242317 Z13.31 here and doing well Hypercholesterolemia 136 19267 E78.00 ldl is 135 doing ok reviewed lab in detailCont inue to hold statin and recheck next year Health Concerns Section Related Observation LastModified by Organization Detai ls LastModified Time None Recorded Concern Status LastModified by Organization Details LastModified Time None Recorded Advance Directives Directive None Recorded Payers Insurance Date Sequence Insurance Name Policy Number Policy Todd Covered Member ID Todd Member ID Guarantor Name 05/30/2024 2 [facility] (PPO) 106 Precious Bonafilia [id number] Precious A Bonafilia 05/05/2025 2 [facility]: [employer]GRAM 106 Precious Bonafilia [id number] Precious A Bonafilia 05/05/2025 1 [place]: [employer] Precious A Bonafilia [id number] Precious A Bonafilia Notes Date Note Type Note Provider Name a nd Address Organization Details Recorded Time 4 text/html ROS as noted in the HPI here for rechk and is ok but is having a hard time with her knee states is very sore and is worseningdoing ok otherwise Dean Cannon DO [address] [facility], [place], [address], [facility] Internal Medicine 12/04/2023 16:14:33 4 text/html Medicare Annual Wellness VisitReported by PatientSocial/Behavio ral HistoryFor diet and nutrition, patient reportshealthy diet. For fracture risk, patient reportsno history of fractures,no recent explained fracture,no sudden unexplained fractures, andno previous musculoskeletal injuries. For physical activity, patient reportsexercises on a regular basis,recent increase in physical activity, andgood physical condition.Mental Status:For depression risk, patient reportsnever feels sad, empty, or tearful,no loss of interest in activities,no significant changes in weight,no sleep disturbances or insomnia,no agitation,no loss of energy,no feelings of worthlessness or guilt,no thoughts of suicide,no history of depression, andno history of mood disorders. For orientation, patient reportsno disorientation to time,no disorientation to date, andno disorientation to place. For concentration and memory, patient reportsno decreased concentrating ability,no memory lapses or loss, anddoes not forget words. For speech/motor difficulties, patient reportsno speech difficulties,no difficulty expressing formulated concepts,no difficulty with fine manipulative tasks,no difficulty writing/copying,no slowed reaction time, anddoes not knock things over when trying to pick them up.Functional AbilityFor hearing, patient reportsno loss of hearing. For vision, patient reportsno vision problems. For activities of daily living, patient reportsable to bathe with limited or no assistance,able to contol urination and bowels,able to dress with limited or no assistance,able to feed self with limited or no assistance,able to get out of chair or bed with limited or no assistance,able to groom with limited or no assistance, andable to toilet with limited or no assistance. For instrumental activities of daily living, patient reportsable to do house work with limited or no assistance,able to grocery shop with limited or no assistance,able to manage medications with limited or no assistance,able to manage money with limited or no assistance,able to prepare meals with limited or no assistance, andable to use the phone with limited or no assistance. For falls risk assessment, patient reportsno frequent falls while walking,no fall in the past year,no fall since last visit, andno dizziness/vertigo. For home safety, patient reportsno unsafe randal hazzards,no unsafe stairs,no unsafe gas appliances,working smoke/co detectors,wears protective head gear for biking/high velocity,use of seatbelts,practicing 'safer sex',no vision or hearing loss while driving,no fire arms,has hand bars in the bathroom/shower, andgood lighting in the home.ROS as noted in the HPI Dean Cannon, DO [address] [facility], [place], [address], [facility] 05/30/2024 10:59:43 5 text/html ROS as noted in the HPI here coming back from [place] had a hard time down there as 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 and had radiation therapyrelates caused a lot of irritation etc Dean Cannon DO [address] [place] [address], [phone], [facility] Internal [facility] 12/21/2024 09:24:05 5 text/html ROS as noted in the HPI bloced ears Dean Cannon DO [address] [place] [address], [phone], [facility] 03/01/2025 16:58:12 5 text/html ROS as noted in the HPI here for rechk and is feeling well overallno cp no sobdoing walking etc Dean Cannon DO [address] [place] [address], [phone], [facility] 05/08/2025 09:21:40 OBGyn Episode No OBEpisode recorded.
[2025-05-23 06:14] LABS: MANUAL DIFF FLAG NO
[2025-05-23 07:44] LABS: Hematocrit 40.3 % (37.0-47.0); Hemoglobin 13.0 g/dl (12.0-16.0); Imm Gran Abs Auto 0.02 X10*3/uL (0.00-0.03); Imm Gran Pct Auto 0.3 % (0.0-0.4); Lymphocytes Absolute Auto 2.6 X10*3/uL (1.2-4.9); Mean Corpuscular HGB Conc 32.3 g/dl (31.0-35.0); Mean Corpuscular Hemoglobin 30.4 pg (27.0-33.0); Mean Corpuscular Volume 94.2 fL (80.0-98.0); NRBC Abs Auto 0.000 X10*3/uL (0.0-0.012); NRBC Pct Auto 0.0 /100WBC (0.0-0.2); Platelet Count 311 X10*3/uL (160-400); Red Blood Count 4.28 X10*6/uL (4.20-5.50); White Blood Count 7.9 X10*3/uL (4.8-10.8)
[2025-05-23 08:24] LABS: Alanine Aminotransferase 25 U/L (0-31); Albumin Level 4.3 g/dL (3.5-5.0); Alkaline Phosphatase 48 U/L (39-117); Anion Gap 11 (12-20); Aspartate Amino Transferase 25 U/L (5-31); Blood Urea Nitrogen 15 mg/dL (9-16); Calcium 9.5 mg/dL (8.4-10.2); Carbon Dioxide 28 mmol/L (22-29); Chloride 108 mmol/L (96-108); Cholesterol 209 mg/dL (<200); Estimated Glomerular Filt Rate 51; HDL Cholesterol 47 mg/dL (>40); Potassium 4.5 mmol/L (3.3-5.1); Sodium 142 mmol/L (135-145); Total Protein 7.0 g/dL (6.5-8.0); Triglycerides 146 mg/dL (<150)
[2025-05-23 11:04] LABS: Thyroid Stimulating Hormone 4.52 uIU/mL (0.32-4.0)
== END 2025-05-23 05:59 | disposition home or self-care (01) ==
LOC: HO.LAB 05:58
PROVIDERS: PCP Internal Medicine; Visit Provider Internal Medicine
DX: E78.00 Pure hypercholesterolemia, unspecified (principal)
CPT/HCPCS: 36415; 80053; 80061; 84443; 85025

== ENCOUNTER 2025-05-29 07:40 | Outpatient (REF) | payer MEDICARE, BC, SELFPAY ==
--- OUTSIDE RECORDS SUMMARY | 2025-05-29 07:42 | XMS_ITS | Clinical Summary ---
Author Organization [facility] Address [address] [place], [place] [id number] Care Team Providers Care Bilingual Customer Service Name Role Phone Dean Teixeira Primary Care Provider [phone] Allergies Active Allergy Reactions Criticality Noted Date [...] to [place] [id number] [facility] Member Subscriber Plan / Payer (Ef fective 2015-Present) Name:Precious Trevizo Relation to Subscriber:Spouse Name:ROGELIO TREVIZO Date of :1900 Address: [address] [place] [phone] Payer ID:[id number] (NAIC) Group ID:[id number] Type:Not on file Address: [address] [place] [address] [facility] FED 65 PLUS on file MEDICARE [facility] FEDERAL Member Subscriber Plan / Payer ( fective 2015-Present) Name:Precious Trevizo Relation to Subscriber:Spouse Name:ROGELIO TREVIZO Date of :1900 Address: [address] [place] [address] Payer ID:[id number] (NAIC) Group ID:[id number] Type:Not on file Address: [address] [place] [address] Care Teams Bilingual Customer Service Relationship Specialty Start Date End Date Lluvia Dean [address] [place] [phone] PCP - General Internal Medicine 02/21/19
--- OUTSIDE RECORDS SUMMARY | 2025-05-29 07:43 | XMS_ITS | Data Portability ---
Author Organization [facility], Telehealth Patient Home Address [address] [place] [address] Assessment Encounter Date Assessment Date Assessment LastModified by Organization Details LastModified Time 12/04/2023 12/04/2023 [id number] [place] [address] ([employer]) MDM MODERATE MUST MEET 2 OUT OF [...] living. Not available 05/04/2024 15:46:07 12/21/2024 12/21/2024 [id number] [place] [id number] ([employer]IL[employer]) MDM MODERATE MUST MEET 2 OUT OF [...] COVERED Not available 12/21/2024 09:21:43 05/08/2025 05/08/2025 [address] [place] [address] ([employer]IL[employer]) MDM MODERATE MUST MEET 2 OUT OF [...] Details Appointments FOLLOW UP 15 2025 09:15A Viry CANNON Not available Not available Not available Lab lipid panel, blood 2024 025 [facility], [address] [place] [address], [address], 05/24/2025 12:12:07 CBC 2024 025 [facility], [address] [place] [address], [address], 05/24/2025 12:12:08 CMP, serum or plasma 2024 025 [facility], [address] [place] [address], [address], 05/24/2025 12:12:07 TSH, serum or plasma 2024 025 [facility], [address] [place] [address], [address], 05/24/2025 12:12:08 lipid panel, blood 2023 024 [facility], [address] [place] [address], [address], 12/04/2023 16:04:56 CBC w/ auto diff 2023 024 [facility], [address] [place] [address], [address], 12/04/2023 16:04:56 Referral None recorded. Procedures None recorded. Surgeries None recorded. Imaging MRI, knee, w/o contrast 2023 024 [facility], [address] [place] [address], [address], 12/14/2023 09:20:45 Medication Orders cephalexi n 500 mg capsule 2023 025 [facility] #[id number], [address] [place], [address], 12/21/2024 09:06:46 Patient TargetsNo targets recorded. Patient Instructions Encounter Date Encounter Id Patient Instructions Last Modified By Organization Details Last Modified Time 12/04/2023 [id number] meniscus tear: care instructions Not available 12/04/2023 16:05:18 05/30/2024 [id number] advance care planning: care instructions Not available 05/30/2024 10:59:01 Discussed and explained advance directives such as standard forms to the . Face to face discussion lasted for a duration of ___ minutes. Not available 05/04/2024 15:46:07 03/01/2025 [id number] pneumonia: care instructions Not available 03/01/2025 15:56:34 Reason for Referral None Reported. Results Created Date Observation Date Name Description Value Unit Range Abnormal Flag Note LastModifiedBy Organization Detail LastModifiedTime 01/19/20 24 01/14/2024 MRI, knee, w/o contr ast No observ ation record ed. [facility] (Medical Records) [address], [place], [address], 01/20/2024 12:03:03 Result Notes None recorded. Problems Name Problem SNOMED Code Status Onset Date Resolution Date Notes Provider Name and Address Organization Details Recorded Time Depressi ve disorder 89859025 Active 2017 Not Available [facility] 2 08:56:40 Hypercho lesterol emia 80225741 Active 2017 Dean Cannon DO [address] [place] [address], [address], [facility] 5 09:14:09 History of malignan t neoplasm of breast 592041908 Active 2017 Not Available [facility] 2 08:56:40 Osteopen ia 464953321 Active 2018 Not Available [facility] 2 08:56:40 Lyme disease 00699334 Active 2018 Not Available [facility] 2 08:56:40 Female urinary stress incontin ence 75183688 Active 2020 Not Available [facility] 2 08:56:40 Secondar y peripher al neuropat hy 867557 Active 2020 lyme ds Not Available [facility] 2 08:56:40 Pancytop enia 859383895 Completed 202112/10/2022 Dean Cannon DO [address] [place] [address], [address], [facility] 3 10:25:19 Cyst of kidney 355047057 Active 2021 Dean Cannon DO [address] [place] [address], [address], [facility] 2 14:51:56 Pain of right knee joint 80131348325 4100 Active 2022 Dean Cannon, DO [address] [place] [address], [place], [address], [facility] 3 10:21:26 Bilatera l osteoart hritis of knees 41149504048 9107 Active 2022 Dean Cannon, DO [address] [place] [address], [address], [facility] 3 09:51:03 Eczema 47683334 Active 2022 Dean Cannon, DO [address] [place] [address], [address], [facility] 3 22:09:28 Tear of meniscus of knee 106673754 Active 2023 Dean Cannon DO [address] [place] [address], [address], [facility] 4 16:04:22 Cellulit is of lower leg 222656995 Active 2023 Dean Cannon, DO [address] [place] [address], [address], [facility] 4 10:58:34 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 796712691 Active 2024 Dean Cannon DO [address] [place] [address], [address], [facility] 5 09:18:39 Acute contact dermatit is 619869853 Active 2024 Dean Cannon DO [address] [place] [address], [address], [facility] 5 15:40:06 Pulmonar y embolism 78134849 Active 2024 Dean Cannon DO [address] [place] [address], [address], [facility] 5 15:47:25 Pneumoni a 528974675 Active 2024 Dean Cannon, DO [address] [place], [address], [facility] 15:48:34 Impacted cerumen of bilatera l ears 42214409692 86963 Active 2024 Dean Shahjeremy DO [address] [place] [address], [address], [facility] 5 16:57:33 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 Procedures Surgical History Date Name Laterality Status Provider Name and Address Organization Details Recorded Time 03/01/20 25 Cerumen Removal completed Dean ThomasYvonne AlyssaDO jeremy [address] [place] [address], [address], [facility] 03/01/2025 16:56:25 03/02/20 19 Cerumen Removal completed November PENELOPE Rene [address] [place] [address], [address], [facility] 03/02/2019 10:50:49 05/13/20 18 Most Recent Mammogram completed [facility] 01/18/2019 15:36:29 excision of left breast completed [facility] 01/18/2019 15:33:32 Imaging Results None recorded. Procedure Notes None recorded. Medical Equipment None Reported. Allergies Allergen ID Allergen Name Allergen Category Reaction Reaction Severity Criticality Documentation Date Start Date Code Code System Note Provider Name and Address Organization Details Recorded Time 1494 erythromy william medicatio n Not available Not available Not available 12/30/2017 4053 [facility] 15:34:00 3163 doxycycli ne Not available Not available Not available Not available 02/09/2019 3640 RxNorm Dean ThomasYvonne AlyssaDO jeremy [address] [place] [address], [address], [facility] 9 12:02:43 3543 Fosamax medicatio n other Not available Not available 05/20/2019 83109 5 RxNorm Dean Cannon, DO [address] [place], [address], [facility] 9 09:29:29 Medications Name [...] Updated DateTime 4 159.39 cm 32 kg/m2 11342.0 3 g 82 /min 98 % 98 % 120/60 mm[Hg] [facility] 4 15:54:30 Date Recorded Body height Oxygen saturation Oxygen saturation in Arterial blood by Pulse oximetry Heart rate Systolic And Diastolic Provider Name and Address Organization Details Last Updated DateTime 5 160.02 cm 97 % 97 % 90 /min 124/78 mm[Hg] Merle Hannah [facility] 5 09:09:31 Date Recorded Body height Body mass index (BMI) Body weight Oxygen saturation Oxygen saturation in Arterial blood by Pulse oximetry Heart rate Systolic And Diastolic Provider Name and Address Organization Details Last Updated DateTime 5 160.02 cm 31.5 kg/m2 15742.4 4 g 98 % 98 % 68 /min 126/78 mm[Hg] Merle Hannah [facility] 5 15:13:46 Date Recorded Body height Body mass index (BMI) Body weight Heart rate Oxygen saturation Oxygen saturation in Arterial blood by Pulse oximetry Systolic And Diastolic Provider Name and Address Organization Details Last Updated DateTime 5 160.02 cm 32 kg/m2 79976.5 g 82 /min 98 % 98 % 120/80 mm[Hg] Cheyenne Germán [facility] 5 09:06:11 Date Recorded Body height Body mass index (BMI) Body weight Heart rate Oxygen saturation Oxygen saturation in Arterial blood by Pulse oximetry Systolic And Diastolic Provider Name and Address Organization Details Last Updated DateTime 4 160.02 cm 31.5 kg/m2 35925.4 4 g 94 /min 98 % 98 % 120/82 mm[Hg] Ash Kelly [facility] 4 10:45:39 Social History Question Answer Notes LastModified by [facility] Details LastModified Time Tobacco Smoking Status Former Smoker Not Available [facility] 06/05/2020 03:36:24 What Was The Date Of Your Most Recent Tobacco Screening? 05/08/2025 [email or web address] Information not available 05/08/2025 Sex: Unknown Functional Status Question Answer Note LastModified by [facility] Details LastModified Time Do you use any illicit or recreational drugs? No Information not available 01/03/2022 Do you or have you ever used any other forms of tobacco or nicotine? No [email or web address] Information not available 12/04/2023 Mental Status None recorded. Family History Nothing Reported. Medical History No medical history recorded. Gynecological History Statement/Question Response Most Recent Mammogram 05/13/2018 Obstetrics History GPAL:G 0 P 0 0 0 0 Immunizations Vaccine Type Date Status Note Provider Nam e and Address Organization Details Recorded Time Influenza, split virus, quadrivalent, preservative 1 completed Dean Cannon DO [address] [place] [address], [address], [facility] 01/03/2022 14:41:40 COVID-19, mRNA, LNP-S, PF, 100 mcg/0.5mL dose or 50 mcg/0.25mL dose 1 completed Dean Cannon DO [address] [place] [address], [address], [facility] 01/03/2022 14:42:05 Tdap 2 completed Dean Cannon DO [address] [place] [address], [address], [facility] 04/10/2022 09:04:32 Influenza, split virus, quadrivalent, preservative 2 completed Dean Cannon DO [address] [place] [address], [address], [facility] 05/23/2022 14:19:35 influenza, unspecified formulation 5 completed Dean Cannon DO [address] [place] [address], [address], [facility] 05/08/2025 09:21:10 MMR 6 completed Dorota Prabhakar [facility] 01/18/2019 15:34:12 Influenza, split virus, quadrivalent, preservative 8 completed Not Available [facility] 08/20/2019 02:46:31 COVID-19, mRNA, LNP-S, PF, 30 mcg/0.3 mL dose 1 completed Carly campbell [facility] 12/05/2020 09:32:45 COVID-19, mRNA, LNP-S, PF, 100 mcg/0.5mL dose or 50 mcg/0.25mL dose 1 completed Carly campbell [facility] 12/05/2020 09:32:57 Past Encounters Encounter ID Performer Location Encounter Start Date Encounter Closed Date Diagnosis/Indication Diagnosis SNOMED-CT Code Diagnosis ICD10 Code Diagnosis IMO Codes Diagnosis Note [id number] Dean Cannon [facility] [address] [address] 05/21/2018 08:59:26 05/21/2018 10:48:25 Chronic depression 836737311 F34.1 Hypercholesterolemia 136 09274 E78.00 reviewed labs History of malignant neoplasm of breast 116762915 Z85.3 [id number] Dean Cannon [facility] [address], [place] [address] 05/24/2018 13:55:57 05/24/2018 16:53:41 Administration of influenza vaccine 04782772 Z23 [id number] Dean Cannon [facility] [address], [place] [address] 01/19/2019 10:02:07 01/19/2019 11:10:19 Pancytopenia 844393459 D61.818 leukopenia resolved while admitted thrombocyt openia trending upward anemia needs to be rechecked but remained stable while admitted Liver func tion tests outside reference range 627671871 R94.5 believed to be due to doxy. levels trended down after switching from doxy to levaquin markedly improved today, though still elevated will need to check again next week Fever 024838876 R50.9 resolved while admitted Diarrhea 02772152 R19.7 resolved while admitted had coffee this morning thought and caused diarrhea x 1 Abnormal g ait due to muscle weakness 331584188 M62.81 Hypokalemia 07081555 E87 .6 resolved while admitted Hyponatremia 61119807 E8 7.1 resolved while admitted Cyst of kidney 086294490 N28.1 Pain in lower limb 86829 006 M79.604 M79.605 ? 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 and is feeling betterenco uraged to drink water etc Severe dehydration 93577 6000 E86.0 is continuing to drink plenty of water Kidney stone 27773503 N2 0.0 reassuranc e [id number] Dean Cannon [facility] [address] [facility] [address], [place] [address] 03/02/2019 10:18:37 03/02/2019 11:50:49 Cough 97064393 R05 try flonase for post nasal drip get cxr if no improvemen t after 1-2 weeks or if cough worsens History of malignant neoplasm of breast 976237147 Z85.3 Hypercholesterolemia 136 30794 E78.00 Impacted c erumen of bilateral ears 8858197081 232111 H61.23 resolved Hearing loss 56508913 H9 0.0 resolved [id number] Dean Cannon [facility] [address], [address] [facility] [address] 03/25/2019 11:42:24 03/25/2019 12:11:16 Hypercholesterolemia 12514957 E78.00 recent blood work was excellent History of malignant neoplasm of breast 197247414 Z85.3 here and doing well no major issues and has good oncologist s in [place] at [facility] has had recent eval and no new issues Osteopenia 018351920 M85 .80 Numbness of toe 01346479 8 R20.0 will chk lab [id number] Dean Cannon [facility] [address], [address] [facility] [place] [place] [address] 05/20/2019 09:03:01 05/20/2019 09:55:43 Osteopenia 346909703 M85.80 has noted hx off fosamax intoleranc e due to loss of bone mass in jaw while on fosamax even lost a tooth will have her cont vitd3 and we will rechk in december when [place] Hypercholesterolemia 136 31757 E78.00 recent blood work was excellent hold simvastat for now will rechk and restart the kuldiptati n if her lab increases in the spring when [place] Chronic depression 35583 0009 F34.1 [id number] Dean Cannon DO [facility] [address] [address] 02/20/2020 14:20:58 02/20/2020 15:05:10 History of malignant neoplasm of breast 400347213 Z85.3 Doing well very well, just saw rad onc will see rad-onc in one year Hypercholesterolemia 136 50015 E78.00 recent blood work was excellent Continue to hold statin and recheck next year Cyst of kidney 092475431 N28.1 R sided, likely benign Was seen on [place] last year, [place] [id number] Dean Cannon DO [facility] [address] [address] 03/06/2020 09:39:03 03/06/2020 10:26:23 Adult health examination 105737021 Z00.00 patient was at the ER recently for a kidney stone on the right side has hematuria will set up with urology as she was not given referral by the hospital Active or passive immunization 913332953 Z23 no right now given they are not doing them did discuss with patient Kidney stone 05402687 N2 0.0 will send to urology to have her evaluated was given prednisone and flomax [id number] Dean Cannon DO [facility] [address] [address] 03/26/2020 09:57:41 03/26/2020 10:44:24 Solitary nodule of lung 153647939 R91.1 4 mm solitary nodule, in the right middle lobe will fu with onc Depressive disorder 7037 9577 F32.9 is feeling down but no SI patient states she does not want to start anything again [id number] Dean Cannon DO [facility] [address] [address] 12/05/2020 09:24:35 12/05/2020 12:25:55 Hypercholesterolemia 19158603 E78.00 recent blood work was excellent Continue to hold statin and recheck next year Fatigue 98305970 R53.83 [id number] Dean Cannon [facility] [address], [place] [address] 01/11/2021 10:04:34 01/11/2021 13:01:13 Hypercholesterolemia 54274640 E78.00 recent blood work was excellent Continue to hold statin and recheck next year Female jeffrey good stress incontinence 76239292 N39.3 she will call us and let us know whether the bladder is getting worse Depressive disorder 3548 9007 F32.9 [id number] Dean Cannon [facility] [address],[place] [address] 05/21/2021 13:28:23 05/21/2021 14:23:39 Hypercholesterolemia 44443251 E78.00 recent blood work was excellent Continue to hold statin and recheck next year Depressive disorder 3548 9007 F32.9 has been doing ok overallden ies any worsening symptoms Pancytopenia 077257768 D 61.818 stable an not an issue Secondary peripheral neuropathy 695990 G63 we will try some gabapent Postmenopa usal osteopenia 719736944 M85.80 will order bone density [id number] Dean Cannon [facility] [address], [employer] [address] 01/03/2022 14:26:13 01/03/2022 15:27:52 Hypercholesterolemia 51171001 E78.00 recent blood work was excellent Continue to hold statin and recheck next year Osteopenia 852419745 M85 .80 has noted hx off fosamax intoleranc e due to loss of bone mass in jaw while on fosamax even lost a tooth will have her cont vitd3 and we will rechk in december [place] Depressive disorder 3548 9007 F32.9 has been doing ok overallden ies any worsening symptoms Advance care planning 71 8007802 Z71.89 cont Active or passive immunization 746387537 Z23 patient advised of due vaccines (tdap, pneu 13 & 23, shingles) Pancytopenia 110452570 D 61.818 stable an not an issue Secondary peripheral neuropathy 621001 G63 we will try some gabapent [id number] Dean Cannon [facility] [address],[place] [address] 05/23/2022 14:06:22 05/23/2022 16:50:46 Hypercholesterolemia 08477927 E78.00 recent blood work was excellent Continue to hold statin and recheck next year Depressive disorder 3548 9007 F32.9 has been doing ok overallden ies any worsening symptoms Active or passive immunization 883957199 Z23 patient advised of due vaccines (flu, pneu 13 & 23, shingles) Secondary peripheral neuropathy 029392 G63 we will try some gabapent Cyst of kidney 951040828 N28.1 R sided, likely benign Was seen on CT 2018, not too visible on US but will order repeat when she returns in spring she had a renal US ordered but she cancelled [id number] Dean Cannon [facility] [address] [place] [address] 12/10/2022 09:54:19 12/10/2022 11:47:35 Hypercholesterolemia 55511259 E78.00 recent blood work was excellent Continue to hold statin and recheck next year History of malignant neoplasm of breast 190286000 Z85.3 Doing well very well, just saw rad onc will see rad-onc in one year Secondary peripheral neuropathy 482043 G63 from lyme disease [id number] Dean Cannon [facility] [address] [address] 05/01/2023 08:57:33 05/01/2023 13:33:38 Hypercholesterolemia 93910208 E78.00 will order lab Continue to hold statin and recheck next year Pain of ri ght knee joint 5026984590 02202 M25.561 fell on knee going up stairs several weeks agonow very sore [id number] Dean Cannon [facility] [address] [facility] [address] [address] 05/29/2023 09:26:14 05/29/2023 12:03:54 Depressive disorder 68973503 F32.9 has been doing ok overallden ies any worsening symptoms Hypercholesterolemia 136 19425 E78.00 will order lab Continue to hold statin and recheck next year Bilateral osteoarthritis of knees 9324606871 48410 M17.0 relates she is actually doing ok Pain of ri ght knee joint 8956568060 58833 M25.561 fell on knee going up stairs several weeks agodoing good [id number] Dean Cannon [facility] Internal [facility] [address], [place] [address] 12/04/2023 15:47:05 12/04/2023 16:41:45 Bilateral osteoarthritis of knees 4325642244 28766 M17.0 relates she is actually doing ok Hypercholesterolemia 136 63807 E78.00 ldl is 120 doing ok reviewed lab in detailCont inue to hold statin and recheck next year Tear of me niscus of knee 564740433 S83.209A noted to have worsening pain and effusion [id number] Dean Cannon [facility] [address], [place] [address] 05/30/2024 10:22:06 05/30/2024 14:58:18 Adult health examination 799108192 Z00.01 has a cellulitis Screening for osteoporosis 131013937 Z13.820 upon [place] Screening mammography 24 335542 Z12.31 [place] Depression screening 171 415252 Z13.31 here and doing well Cellulitis of lower leg 904774791 L03.119 [id number] Dean Cannon [facility] [address], [place] [address] 12/21/2024 09:00:01 12/21/2024 10:35:36 Depression screening 800778513 Z13.31 here and doing well Hypercholesterolemia 136 03406 E78.00 ldl is 135 doing ok reviewed lab in detailCont inue to hold statin and recheck next year Depressive disorder 3548 9007 F32.9 has been doing ok overallden ies any worsening symptoms Basal cell carcinoma of nasal columella 506372730 C44.311 [id number] s/p radiation therapy and looks fantastic [id number] Dean Cannon [facility] [address] [address] 03/01/2025 15:03:59 03/03/2025 08:28:39 Pneumonia 916914430 J18.9 [id number] wrong dx Impacted c erumen of bilateral ears 6505870687 202941 H61.23 [id number] Dean Cannon DO [facility] [address] [place] [address] 05/08/2025 08:53:46 05/08/2025 09:34:16 Depression screening [id number] Z13.31 here and doing well Hypercholesterolemia [id number] E78.00 ldl is 135 doing ok reviewed [...] Todd Member ID Guarantor Name 05/30/2024 2 [facility] ([facility] 106 Precious Bonafilia [id number] Precious A Bonafilia 05/05/2025 2 [facility]: [employer] 106 Precious Bonafilia [id number] Precious A Bonafilia 05/05/2025 1 MEDICARE [place]: [employer] Precious A Bonafilia [id number] Precious A Bonafilia Notes Date Note Type Note Provider Name a nd Address Organization Details Recorded Time 4 text/html ROS as noted in the HPI here for rechk and is ok but is having a hard time with her knee states is very sore and is worseningdoing ok otherwise Dean Cannon, DO [address] [facility], [place], [phone], [facility] 12/04/2023 16:14:33 4 text/html [...] home.ROS as noted in the HPI Dean MarthaYvonne Cannon DO [address] [place] [address], [phone], [facility] 05/30/2024 10:59:43 5 text/html ROS as noted in the HPI here coming [place] had a hard time down there as 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 and had radiation therapyrelates caused a lot of irritation etc Dean Cannon DO [address] [place] [address], [phone], [facility] 12/21/2024 09:24:05 5 text/html ROS as noted in the HPI bloced ears Dean MarthaYvonne Cannon DO [address] [place] [address], [phone], [facility] 03/01/2025 16:58:12 5 text/html ROS as noted in the HPI here for rechk and is feeling well overallno cp no sobdoing walking etc Dean Cannon DO [address] [place] [address], [phone], [facility] 05/08/2025 09:21:40 OBGyn Episode No OBEpisode recorded.
--- OUTSIDE RECORDS SUMMARY | 2025-05-29 07:43 | XMS_ITS | Clinical Summary ---
Author Organization [facility] Address [address] [place] [address] Care Team Providers Care Machine Or Machinery Mechanic Name Role Phone Dean Teixeira DO Primary Care Provider [phone] Allergies Active Allergy Reactions Criticality Noted Date [...] age to complete this topic Care Teams Machine Or Machinery Mechanic Relationship Specialty Start Date End Date Dean Teixeira DO [address] [place] [address] PCP - General Internal Medicine 03/24/19
--- OUTSIDE RECORDS SUMMARY | 2025-05-29 07:43 | XMS_ITS | Clinical Summary ---
Author Organization [facility] Address [id number] [place] [id number] Care Team Providers Care Measurement Department Chief Clerk Name Role Phone Dean Teixeira DO Primary Care Provider [phone] Medical History Medical History Date Comments Breast cancer (CMS/HCC V24, CMS/HCC V28) DX:Breast cancer ([facility]) Social History Tobacco Use Types Packs/Day [...] nts (1 - 1-dose 75+ series) 2017 Depression Screening 08/03/2024 COVID-19 Vaccine (1 - 2023-2 5 season) 2025 Influenza Vaccine (#1) 2025 HIB Vaccines Aged Out No longer [...] age to complete this topic Care Teams Measurement Department Chief Clerk Relationship Specialty Start Date End Date Dean Teixeira DO [address] [facility] [address] [place], [place] PCP - General Internal Medicine 03/24/19
--- OUTSIDE RECORDS SUMMARY | 2025-05-29 07:43 | XMS_ITS | Encounter Summary ---
Author Organization [facility] Address [address] [place] [address] Phone Care Team Providers Care Boiler Operator Name Role Phone Unavailable Primary Care Provider Unavailabl e Encounter Details Date Type Department Care Team (Latest Contact Info) Description 01/19/2019 Transcribe Orders Virtual Department [address] [place] [address] Francy Rene PA-C [address] [place] [address] [email or web address] Acquired cyst of kidney (Primary [...] It is not the complete legal health record.[facility]
--- OUTSIDE RECORDS SUMMARY | 2025-05-29 07:43 | XMS_ITS | Encounter Summary ---
Author Organization [facility] Address [address] [facility] [address] [place] [phone] Phone Care Team Providers Care Vending Mechanic Name Role Phone Unavailable Primary Care Provider Unavailabl e Encounter Details Date Type Department Care Team (Latest Contact Info) Description 04/11/2020 Transcribe Orders Virtual Department [address] [place] [address] Nori Anthony PA [address] [place] [address] [place] [address] Solitary lung nodule (Primary Dx) Social History [...] It is not the complete legal health record.[facility]
--- OUTSIDE RECORDS SUMMARY | 2025-05-29 07:43 | XMS_ITS | Clinical Summary ---
Author Organization [facility] Address [address] [address] Phone Care Team Providers Care Space Systems Operations Superintendent Name Role Phone Unavailable Primary Care Provider [...] It is not the complete legal health record.[facility]
[2025-05-29 14:46] LABS: Free T4 (Free Thyroxine) 1.12 ng/dL (0.71-1.85)
== END 2025-05-29 07:41 | disposition home or self-care (01) ==
LOC: HO.MANLDS 07:40
PROVIDERS: Visit Provider Internal Medicine
DX: E03.8 Other specified hypothyroidism (principal)
CPT/HCPCS: 36415; 84439; 84443; 86376